=== PATIENT | female | born 1960 | race African-American/Black ===

== ENCOUNTER 2017-03-20 15:44 | Inpatient (IN) | payer MEDICAID ==
[~2017-03-20] VITALS: Ht 175.3 cm; Wt 109.3 kg
[2017-03-20 16:32] LABS: BASOPHILS % (AUTO) 0.4 % (0.0-2.0); EOSINOPHILS % (AUTO) 0.8 % (0.0-3.0); LYMPHOCYTES % (AUTO) 16.6 % (20.0-45.0); MEAN CORPUSCULAR HEMOGLOBIN 30.7 PG (27.0-31.0); MEAN CORPUSCULAR HGB CONC 33.4 G/DL (32.0-36.0); MEAN CORPUSCULAR VOLUME 92 FL (80-99); MEAN PLATELET VOLUME 7.9 FL (6.5-10.1); NEUTROPHILS % (AUTO) 77.2 % (45.0-75.0); PLATELET COUNT 275 K/UL (150-450); RED BLOOD COUNT 4.65 M/UL (4.20-5.40); RED CELL DISTRIBUTION WIDTH 10.6 % (11.6-14.8); WHITE BLOOD COUNT 8.6 K/UL (4.8-10.8)
--- NOTE | 2017-03-20 16:47 | Diagnostic Imaging Report ---
Indications: Head trauma, status post fall Technique: Spiral acquisitions obtained through the brain. Angled axial and coronal 5 x 5 mm slices were reconstructed. Total dose length product 1512 mGycm. CTDI vol(s) 70 mGy. 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 There is bilateral lateral ventricular as well as third ventricular hydrocephalus. Normal sized fourth ventricle Normal size extra-axial CSF spaces. No acute intracranial hemorrhage. No mass effect or midline shift. Normal stoner-white differentiation. Impression: No acute intracranial bleed or mass effect Bilateral hydrocephalus. 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 Correlate with clinical history The CT scanner at [facility] is accredited by the [employer] and the scans are performed using protocols designed to limit radiation exposure to as low as reasonably achievable to attain images of sufficient resolution adequate for diagnostic evaluation.
[2017-03-20 16:55] LABS: ANION GAP 7 mmol/L (5-15); CALCIUM 9.7 MG/DL (8.5-10.1); CARBON DIOXIDE 31 MMOL/L (21-32); CHLORIDE 101 MMOL/L (98-107); CREATININE 1.1 MG/DL (0.55-1.30); GLOMERULAR FILTRATION RATE > 60 mL/min (>60); POTASSIUM 5.3 MMOL/L (3.5-5.1); SODIUM 138 MMOL/L (136-145)
[2017-03-20 17:00] LABS: ALANINE AMINOTRANSFERASE 23 U/L (12-78); ALBUMIN/GLOBULIN RATIO 0.8 (1.0-2.7); ASPARTATE AMINO TRANSFERASE 12 U/L (15-37); LIPASE 224 U/L (73-393)
[2017-03-20 17:05] LABS: INR 0.9 (0.9-1.1); PROTHROMBIN TIME 9.2 SEC (9.30-11.50)
[2017-03-20] MEDS ORDERED: metFORMIN 500mg tab ORAL ONE (18:15)
[2017-03-20 18:21] VITALS: BP 137/81
[2017-03-20 19:24] LABS: APPEARANCE,URINE CLEAR; KETONES,URINE NEGATIVE (NEGATIVE); LEUKOCYTE ESTERASE ,URINE 1+ (NEGATIVE); NITRITE,URINE POSITIVE (NEGATIVE); PH,URINE 6 (4.5-8.0); PROTEIN,URINE NEGATIVE (NEGATIVE); UROBILINOGEN,URINE NORMAL MG/DL (0.0-1.0)
[2017-03-20 19:29] VITALS: BP 149/93
[2017-03-20 19:41] LABS: ANION GAP 9 mmol/L (5-15); CALCIUM 9.4 MG/DL (8.5-10.1); CARBON DIOXIDE 24 MMOL/L (21-32); CHLORIDE 104 MMOL/L (98-107); CREATININE 0.8 MG/DL (0.55-1.30); GLOMERULAR FILTRATION RATE > 60 mL/min (>60); POTASSIUM 5.3 MMOL/L (3.5-5.1); SODIUM 137 MMOL/L (136-145)
[2017-03-20 19:51] LABS: BACTERIA,URINE MODERATE /HPF; SQUAMOUS EPITHELIAL CELL,UR FEW /LPF (NONE/OCC)
[2017-03-20 19:52] LABS: AMORPHOUS SEDIMENT,UR FEW /LPF
[2017-03-20] MEDS ORDERED: Sodium Polystyrene Sulfonate 15gm Powder ORAL ONE (20:00)
--- NOTE | 2017-03-20 20:39 | Emergency Room Report ---
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 She states that she often falls to to the weakness. She uses a walker to get around her independent living facility. She states that she was in the top, slipped, and fell. She states that she hit the back of her head. She denies loss of consciousness at that time. Pain is an 8/10 dull ache and does not radiate. Worse with touch. She denies other symptoms including nausea, vomiting, dizziness, blurred vision , neck pain, chest pain, shortness of breath Allergies: Coded Allergies: No Known Allergies (Unverified , 03/20/17) Patient History Past Medical History: see triage record Pertinent Family History: none Reviewed Nursing Documentation: PMH: Agreed, PSxH: Agreed Nursing Documentation-PMH Past Medical History: No History, Except For Hx Hypertension: Yes Hx Diabetes: Yes Hx Cerebrovascular Accident: Yes Review of Systems All Other Systems: negative except mentioned in HPI Physical Exam Vital Signs Date Time Temp Pulse Resp B/P (MAP) Pulse Ox O2 Delivery O2 Flow Rate FiO2 03/20/17 15:39 97.5 112 20 122/72 96 Room Air Sp02 EP Interpretation: reviewed, normal General Appearance: no apparent distress, alert, GCS 15, non-toxic Head: normocephalic, atraumatic Eyes: bilateral eye PERRL, bilateral eye EOMI ENT: hearing grossly normal, normal pharynx, no angioedema, normal voice Neck: full range of motion, supple/symm/no masses Respiratory: chest non-tender, lungs clear, normal breath sounds, speaking full sentences Cardiovascular #1: regular rate, rhythm, no edema Genitourinary: normal inspection, no CVA tenderness Musculoskeletal: back normal, gait/station normal, normal range of motion, non- tender Neurologic: alert, oriented x3, responsive, sensory intact, speech normal, other - mild R sided extremity weakness Psychiatric: judgement/insight normal, memory normal, mood/affect normal, no suicidal/homicidal ideation Skin: normal color, no rash, warm/dry, well hydrated Lymphatic: no adenopathy Medical Decision Making PA Attestation Dr. Markham is my supervising physician. Patient management was discussed with my supervising physician Diagnostic Impression: Primary Impression: Fall Qualified Codes: W19.XXXA - Unspecified fall, initial encounter Additional Impressions: Hyperkalemia Generalized weakness Urinary tract infection Qualified Codes: N30.00 - Acute cystitis without hematuria ER Course The patient is a 56 old female presenting for fall Differential diagnoses considered but not limited to: Contusion, concussion, fracture, intracranial hemorrhage, dehydration, electrolyte imbalance, among others PE: No apparent distress. Head is normocephalic PERRL. EOMI. CN II-XII intact RRR Lungs CTA bilat There is mild right extremity weakness. Sensation is intact. Labs: Significant for hyperkalemia, hyperglycemia, and urinary tract infection CT head: no acute findings EKG: No acute findings. The patient is given IV fluids, Rocephin, and Kayexalate and will be admitted in serious but stable condition. Dr. Markham has spoken with the admitting physician. Laboratory Tests Test 03/20/17 16:19 03/20/17 18:34 03/20/17 19:09 White Blood Count 8.6 K/UL (4.8-10.8) Red Blood Count 4.65 M/UL (4.20-5.40) Hemoglobin 14.2 G/DL (12.0-16.0) Hematocrit 42.6 % (37.0-47.0) Mean Corpuscular Volume 92 FL (80-99) Mean Corpuscular Hemoglobin 30.7 PG (27.0-31.0) Mean Corpuscular Hemoglobin Concent 33.4 G/DL (32.0-36.0) Red Cell Distribution Width 10.6 % (11.6-14.8) L Platelet Count 275 K/UL (150-450) Mean Platelet Volume 7.9 FL (6.5-10.1) Neutrophils (%) (Auto) 77.2 % (45.0-75.0) H Lymphocytes (%) (Auto) 16.6 % (20.0-45.0) L Monocytes (%) (Auto) 5.0 % (1.0-10.0) Eosinophils (%) (Auto) 0.8 % (0.0-3.0) Basophils (%) (Auto) 0.4 % (0.0-2.0) Prothrombin Time 9.2 SEC (9.30-11.50) L Prothrombin Time INR 0.9 (0.9-1.1) PTT 26 SEC (23-33) Sodium Level 138 MMOL/L (136-145) 137 MMOL/L (136-145) Potassium Level 5.3 MMOL/L (3.5-5.1) H 5.3 MMOL/L (3.5-5.1) H Chloride Level 101 MMOL/L (98-107) 104 MMOL/L (98-107) Carbon Dioxide Level 31 MMOL/L (21-32) 24 MMOL/L (21-32) Anion Gap 7 mmol/L (5-15) 9 mmol/L (5-15) Blood Urea Nitrogen 26 mg/dL (7-18) H 23 mg/dL (7-18) H Creatinine 1.1 MG/DL (0.55-1.30) 0.8 MG/DL (0.55-1.30) Estimate Glomerular Filtration Rate > 60 mL/min (>60) > 60 mL/min (>60) Glucose Level 387 MG/DL (74-106) H 303 MG/DL (74-106) H Calcium Level 9.7 MG/DL (8.5-10.1) 9.4 MG/DL (8.5-10.1) Total Bilirubin 0.2 MG/DL (0.2-1.0) Aspartate Amino Transferase (AST) 12 U/L (15-37) L Alanine Aminotransferase (ALT) 23 U/L (12-78) Alkaline Phosphatase 80 U/L (46-116) Total Protein 8.0 G/DL (6.4-8.2) Albumin 3.5 G/DL (3.4-5.0) Globulin 4.5 g/dL Albumin/Globulin Ratio 0.8 (1.0-2.7) L Lipase 224 U/L (73-393) Urine Color Pale yellow Urine Appearance Clear Urine pH 6 (4.5-8.0) Urine Specific [place] 1.005 (1.005-1.035) Urine Protein Negative (NEGATIVE) Urine Glucose (UA) 4+ (NEGATIVE) H Urine Ketones Negative (NEGATIVE) Urine Occult Blood Negative (NEGATIVE) Urine Nitrite Positive (NEGATIVE) H Urine Bilirubin Negative (NEGATIVE) Urine Urobilinogen Normal MG/DL (0.0-1.0) Urine Leukocyte Esterase 1+ (NEGATIVE) H Urine RBC 2-4 /HPF (0 - 2) H Urine WBC 5-10 /HPF (0 - 2) H Urine Squamous Epithelial Cells Few /LPF (NONE/OCC) Urine Amorphous Sediment Few /LPF (NONE) H Urine Bacteria Moderate /HPF (NONE) H Lab Results Impression Significant for hyperkalemia, hyperglycemia, and urinary tract infection EKG Diagnostic Results EP Interpretation: NSR, No acute changes Rate: normal - 86 Rhythm: NSR ASA given to the pt in ED: No PA Scribe Text EKG was reviewed and read with my supervising physician. No acute ST segment changes are seen. Normal rate and rhythm. No acute changes. CT/MRI/US Diagnostic Results CT/MRI/US Diagnostic Results : Imaging Test Ordered: CT head Impression No acute findings. Last Vital Signs Date Time Temp Pulse Resp B/P (MAP) Pulse Ox O2 Delivery O2 Flow Rate FiO2 03/20/17 19:29 98.1 91 13 149/93 98 Room Air Status: improved Disposition: ADMITTED INPATIENT Condition: Serious Referrals: [facility],REFERRING (PCP) LEYDI SNYDER Mar 20, 2017 20:39
[2017-03-20] MEDS ORDERED: cefTRIAXone 1 GM in NS 55 ML IVPB ONE (20:45)
[2017-03-20] MEDS ORDERED: CILOSTAZOL100 MG PO (20:55)
[2017-03-20] MEDS ORDERED: ACTOS15 MG ORAL (20:55)
[2017-03-20] MEDS ORDERED: GABAPENTIN300 MG ORAL (20:55)
[2017-03-20] MEDS ORDERED: METFORMIN HCL500 M1 ORAL (20:55)
[2017-03-20] MEDS ORDERED: RISPERDAL3 MG PO (20:59)
[2017-03-20] MEDS ORDERED: DEPAKOTE ER500 MG ORAL (20:59)
[2017-03-20] MEDS ORDERED: ABILIFY15 MG ORAL (20:59)
[2017-03-20] MEDS ORDERED: SERTRALINE HCL100 MG PO (20:59)
[2017-03-20] MEDS ORDERED: HYDROCHLOROTH12.5 MG ORAL (21:01)
[2017-03-20] MEDS ORDERED: BENAZEPRIL HCL10 MG ORAL (21:01)
[2017-03-20] MEDS ORDERED: AMLODIPINE-BEN1 EACH ORAL (21:07)
[2017-03-20 22:17] VITALS: BP 128/98
[2017-03-20] MEDS ORDERED: Miralax 17gm pkt ORAL PRN (22:30)
[2017-03-20] MEDS ORDERED: Albuterol/Ipratropium 3ml neb HHN PRN (22:30)
[2017-03-20 23:30] VITALS: BP 134/73
[2017-03-21] VITALS: BP 135/73
[2017-03-21] MEDS ORDERED: Vancomycin 1 GM in D5W 275 ML IVPB SCH (01:00)
[2017-03-21] MEDS ORDERED: Vancomycin 1gm inj IVPB ONE (01:12)
[2017-03-21 04:00] VITALS: BP 140/83
[2017-03-21] MEDS: Morphine Sulfate 2mg/ml Inj IVP PRN ×3 (04:31→22:43)
[2017-03-21] MEDS ORDERED: Insulin NPH SUBQ SCH (06:30)
[2017-03-21] MEDS: NovoLOG Insulin Flexpen SUBQ SCH ×4 (06:30→22:12)
[2017-03-21 08:00] VITALS: BP 136/72
[2017-03-21] MEDS ORDERED: Flu Vaccine Quadrivalent 0.5ml IM ONE (09:00)
[2017-03-21] MEDS: Heparin 5000 units/ml inj SUBQ SCH ×2 (09:00→21:47)
[2017-03-21] MEDS ORDERED: Pneumococcal Vaccine 25mcg/0.5ml IM ONE (09:00)
[2017-03-21 09:02] LABS: BASOPHILS % (AUTO) 0.6 % (0.0-2.0); EOSINOPHILS % (AUTO) 1.1 % (0.0-3.0); LYMPHOCYTES % (AUTO) 24.2 % (20.0-45.0); MEAN CORPUSCULAR HEMOGLOBIN 29.6 PG (27.0-31.0); MEAN CORPUSCULAR HGB CONC 32.5 G/DL (32.0-36.0); MEAN CORPUSCULAR VOLUME 91 FL (80-99); MEAN PLATELET VOLUME 7.5 FL (6.5-10.1); MONOCYTES % (AUTO) 5.8 % (1.0-10.0); NEUTROPHILS % (AUTO) 68.3 % (45.0-75.0); PLATELET COUNT 285 K/UL (150-450); RED CELL DISTRIBUTION WIDTH 10.7 % (11.6-14.8); WHITE BLOOD COUNT 7.8 K/UL (4.8-10.8)
[2017-03-21 09:17] LABS: ALANINE AMINOTRANSFERASE 21 U/L (12-78); ALBUMIN/GLOBULIN RATIO 0.7 (1.0-2.7); ANION GAP 5 mmol/L (5-15); ASPARTATE AMINO TRANSFERASE 13 U/L (15-37); CALCIUM 9.2 MG/DL (8.5-10.1); CARBON DIOXIDE 33 MMOL/L (21-32); CHLORIDE 106 MMOL/L (98-107); CREATININE 0.9 MG/DL (0.55-1.30); GLOMERULAR FILTRATION RATE > 60 mL/min (>60); POTASSIUM 4.4 MMOL/L (3.5-5.1); SODIUM 144 MMOL/L (136-145); TOTAL PROTEIN 7.3 G/DL (6.4-8.2)
[2017-03-21] MEDS: Cefepime HCl 2 GM in D5W 55 ML IV SCH ×2 (09:48→21:36)
[2017-03-21] MEDS: Cilostazol 100mg tab ORAL SCH ×2 (09:49→17:12)
[2017-03-21] MEDS: Sertraline 100mg tab ORAL SCH ×2 (09:49→17:35)
--- NOTE | 2017-03-21 11:33 | History and Physical ---
History of Present Illness General Date patient seen: Mar 20, 2017 Reason for Hospitalization: Multiple Trauma/Fall Present Illness HPI 56 old female with a history of congenital brain malformation and right-sided weakness status post CVA, diabetes, and hypertension presenting for pain after a fall today. She states that she often falls to to the weakness. She was in the top, slipped, and fell. She states that she hit the back of her head. She denies loss of consciousness at that time. Pain is an 8/10 dull ache and does not radiate. She was noticed to have UTI and Hyperkalemia and admitted to telemetry for further w/u. Allergies: Coded Allergies: No Known Allergies (Unverified , 03/20/17) Medication History Scheduled Amlodipine Besylate/Benazepril* (Amlodipine-Benazepril 10-20 Mg*), 1 CAP ORAL DAILY, (Reported) Aripiprazole* (Abilify*), 30 MG ORAL DAILY, (Reported) Cilostazol* (Cilostazol*), 100 MG PO TWICE A DAY, (Reported) Divalproex Sodium* (Depakote Er*), 500 MG ORAL QHS, (Reported) Gabapentin* (Gabapentin*), 300 MG ORAL BID, (Reported) Hydrochlorothiazide* (Hydrochlorothiazide*), Unknown Dose ORAL DAILY, (Reported) Metformin Hcl* (Metformin Hcl*), 500 MG ORAL TWICE A DAY, (Reported) Pioglitazone Hcl* (Actos*), 15 MG ORAL DAILY, (Reported) Risperidone (Risperdal), 3 MG PO QHS, (Reported) Sertraline Hcl* (Zoloft*), 100 MG PO BID, (Reported) Patient History Healthcare decision maker Resuscitation status Full Code Advanced Directive on File Past Medical/Surgical History Past Medical/Surgical History: (1) Cerebrovascular accident (CVA) (2) Congenital brain damage Review of Systems All Other Systems: negative except mentioned in HPI Physical Exam General Appearance: WD/WN Lines, tubes and drains: peripheral, PICC HEENT: normocephalic, mucous membranes moist Neck: normal alignment, supple Respiratory/Chest: chest wall non-tender, normal breath sounds Breasts: no masses Cardiovascular/Chest: normal peripheral pulses, regular rhythm Abdomen: normal bowel sounds Genitourinary/Rectal: normal genital exam Last 24 Hour Vital Signs Date Time Temp Pulse Resp B/P (MAP) Pulse Ox O2 Delivery O2 Flow Rate FiO2 03/21/17 08:00 97.2 105 20 136/72 95 Room Air 03/21/17 06:45 77 18 Room Air 03/21/17 04:00 98.2 103 18 140/83 99 Room Air 03/21/17 04:00 94 03/21/17 00:00 97.4 97 18 135/73 98 Room Air 03/21/17 00:00 93 03/20/17 23:30 97.0 96 16 134/73 97 Room Air 03/20/17 23:10 98.1 91 12 128/98 98 Room Air 03/20/17 22:17 98.1 91 12 128/98 98 Room Air 03/20/17 19:29 98.1 91 13 149/93 98 Room Air 03/20/17 18:21 98.1 90 16 137/81 100 Room Air 03/20/17 15:39 97.5 112 20 122/72 96 Room Air Laboratory Tests Test 03/20/17 16:19 03/20/17 18:34 03/20/17 19:09 03/21/17 08:30 White Blood Count 8.6 K/UL (4.8-10.8) 7.8 K/UL (4.8-10.8) Red Blood Count 4.65 M/UL (4.20-5.40) 4.60 M/UL (4.20-5.40) Hemoglobin 14.2 G/DL (12.0-16.0) 13.6 G/DL (12.0-16.0) Hematocrit 42.6 % (37.0-47.0) 42.0 % (37.0-47.0) Mean Corpuscular Volume 92 FL (80-99) 91 FL (80-99) Mean Corpuscular Hemoglobin 30.7 PG (27.0-31.0) 29.6 PG (27.0-31.0) Mean Corpuscular Hemoglobin Concent 33.4 G/DL (32.0-36.0) 32.5 G/DL (32.0-36.0) Red Cell Distribution Width 10.6 % (11.6-14.8) L 10.7 % (11.6-14.8) L Platelet Count 275 K/UL (150-450) 285 K/UL (150-450) Mean Platelet Volume 7.9 FL (6.5-10.1) 7.5 FL (6.5-10.1) Neutrophils (%) (Auto) 77.2 % (45.0-75.0) H 68.3 % (45.0-75.0) Lymphocytes (%) (Auto) 16.6 % (20.0-45.0) L 24.2 % (20.0-45.0) Monocytes (%) (Auto) 5.0 % (1.0-10.0) 5.8 % (1.0-10.0) Eosinophils (%) (Auto) 0.8 % (0.0-3.0) 1.1 % (0.0-3.0) Basophils (%) (Auto) 0.4 % (0.0-2.0) 0.6 % (0.0-2.0) Prothrombin Time 9.2 SEC (9.30-11.50) L Prothromb Time International Ratio 0.9 (0.9-1.1) Activated Partial Thromboplast Time 26 SEC (23-33) Sodium Level 138 MMOL/L (136-145) 137 MMOL/L (136-145) 144 MMOL/L (136-145) Potassium Level 5.3 MMOL/L (3.5-5.1) H 5.3 MMOL/L (3.5-5.1) H 4.4 MMOL/L (3.5-5.1) Chloride Level 101 MMOL/L (98-107) 104 MMOL/L (98-107) 106 MMOL/L (98-107) Carbon Dioxide Level 31 MMOL/L (21-32) 24 MMOL/L (21-32) 33 MMOL/L (21-32) H Anion Gap 7 mmol/L (5-15) 9 mmol/L (5-15) 5 mmol/L (5-15) Blood Urea Nitrogen 26 mg/dL (7-18) H 23 mg/dL (7-18) H 17 mg/dL (7-18) Creatinine 1.1 MG/DL (0.55-1.30) 0.8 MG/DL (0.55-1.30) 0.9 MG/DL (0.55-1.30) Estimat Glomerular Filtration Rate > 60 mL/min (>60) > 60 mL/min (>60) > 60 mL/min (>60) Glucose Level 387 MG/DL (74-106) H 303 MG/DL (74-106) H 175 MG/DL (74-106) #H Calcium Level 9.7 MG/DL (8.5-10.1) 9.4 MG/DL (8.5-10.1) 9.2 MG/DL (8.5-10.1) Total Bilirubin 0.2 MG/DL (0.2-1.0) 0.3 MG/DL (0.2-1.0) Aspartate Amino Transf (AST/SGOT) 12 U/L (15-37) L 13 U/L (15-37) L Alanine Aminotransferase (ALT/SGPT) 23 U/L (12-78) 21 U/L (12-78) Alkaline Phosphatase 80 U/L (46-116) 69 U/L (46-116) Total Protein 8.0 G/DL (6.4-8.2) 7.3 G/DL (6.4-8.2) Albumin 3.5 G/DL (3.4-5.0) 3.1 G/DL (3.4-5.0) L Globulin 4.5 g/dL 4.2 g/dL Albumin/Globulin Ratio 0.8 (1.0-2.7) L 0.7 (1.0-2.7) L Lipase 224 U/L (73-393) Urine Color Pale yellow Urine Appearance Clear Urine pH 6 (4.5-8.0) Urine Specific [place] 1.005 (1.005-1.035) Urine Protein Negative (NEGATIVE) Urine Glucose (UA) 4+ (NEGATIVE) H Urine Ketones Negative (NEGATIVE) Urine Occult Blood Negative (NEGATIVE) Urine Nitrite Positive (NEGATIVE) H Urine Bilirubin Negative (NEGATIVE) Urine Urobilinogen Normal MG/DL (0.0-1.0) Urine Leukocyte Esterase 1+ (NEGATIVE) H Urine RBC 2-4 /HPF (0 - 2) H Urine WBC 5-10 /HPF (0 - 2) H Urine Squamous Epithelial Cells Few /LPF (NONE/OCC) Urine Amorphous Sediment Few /LPF (NONE) H Urine Bacteria Moderate /HPF (NONE) H Microbiology Date/Time Source Procedure Growth Status 03/20/17 18:34 Urine,Clean Catch Urine Culture - Preliminary Gram Negative Bacillus 1 Resulted Height (Feet): 5 Height (Inches): 9.00 Weight (Pounds): 241 Medications Current Medications Medications (Trade) Dose Ordered Sig/Uyen Route PRN Reason Start Time Stop Time Status Last Admin Dose Admin Acetaminophen (Tylenol) 650 mg Q4H PRN ORAL fever 03/20/17 22:30 04/19/17 22:29 Albuterol/ Ipratropium (Albuterol/ Ipratropium) 3 ml Q4H PRN HHN Shortness of Breath 03/20/17 22:30 03/25/17 22:29 Aripiprazole (Abilify) 30 mg DAILY ORAL 03/21/17 09:00 04/20/17 08:59 03/21/17 09:48 Cefepime HCl 2 gm/ Dextrose 55 ml @ 110 mls/hr EVERY 12 HOURS IV 03/21/17 09:00 03/28/17 08:59 03/21/17 09:48 Cilostazol (Pletal) 100 mg TWICE A DAY ORAL 03/21/17 09:00 04/20/17 08:59 03/21/17 09:49 Dextrose (Dextrose 50%) STAT PRN IV Hypoglycemia 03/20/17 22:30 04/19/17 22:29 Divalproex Sodium (Depakote ER) 500 mg QHS ORAL 03/21/17 21:00 04/20/17 20:59 Gabapentin (Neurontin) 300 mg BID ORAL 03/21/17 09:00 04/20/17 08:59 03/21/17 09:49 Heparin Sodium (Porcine) (Heparin 5000 units/ml) 5,000 units EVERY 12 HOURS SUBQ 03/21/17 09:00 04/20/17 08:59 Insulin Aspart (NovoLOG) BEFORE MEALS AND HS SUBQ 03/21/17 06:30 04/20/17 06:29 03/21/17 06:30 Morphine Sulfate (Morphine Sulfate) 2 mg Q4H PRN IVP Moderate Pain (Pain Scale 4-6) 03/20/17 22:30 03/27/17 22:29 03/21/17 04:31 Ondansetron HCl (Zofran) 4 mg Q6H PRN IVP Nausea & Vomiting 03/20/17 22:30 04/19/17 22:29 Phenazopyridine HCl (Pyridium) 100 mg DAILY PRN ORAL dysuria 03/20/17 22:30 04/19/17 22:29 Polyethylene Glycol (Miralax) 17 gm DAILYPRN PRN ORAL Constipation 03/20/17 22:30 04/19/17 22:29 Sertraline HCl (Zoloft) 100 mg BID ORAL 03/21/17 09:00 04/20/17 08:59 03/21/17 09:49 Temazepam (Restoril) 15 mg HSPRN PRN ORAL Insomnia 03/20/17 22:30 03/27/17 22:29 Vancomycin HCl (Vanco rx to dose) 1 ea DAILY PRN MISC per protocol 03/20/17 23:30 04/19/17 23:29 Vancomycin HCl 1 gm/Dextrose 275 ml @ 183.3 mls/ hr Q12H IVPB 03/21/17 01:00 03/26/17 00:59 03/21/17 01:25 Assessment/Plan Problem List: (1) Urinary tract infection ICD Codes: N39.0 - Urinary tract infection, site not specified SNOMED: 13424838 Qualifiers: Qualified Codes: N30.00 - Acute cystitis without hematuria (2) Hyperkalemia ICD Codes: E87.5 - Hyperkalemia SNOMED: 91238620, 295041565 (3) Generalized weakness ICD Codes: R53.1 - Weakness SNOMED: 06997034 (4) Congenital brain damage ICD Codes: Q04.8 - Other specified congenital malformations of brain SNOMED: 24791612 (5) Cerebrovascular accident (CVA) ICD Codes: I63.9 - Cerebral infarction, unspecified SNOMED: 122900095 Assessment/Plan IV fluids, IV abx check cultures Neuro evaluation renal f/u ARIN CLEANING Mar 21, 2017 11:33
--- NOTE | 2017-03-21 11:37 | Pulmonology Progress Note ---
Assessment/Plan Problems: (1) Urinary tract infection (2) Hyperkalemia (3) Generalized weakness (4) Congenital brain damage (5) Cerebrovascular accident (CVA) Assessment/Plan improving K better continue IV fluids check electroltyes neuro evaluation pending Subjective ROS Limited/Unobtainable: No Constitutional: Reports: no symptoms HEENT: Repors: no symptoms Respiratory: Reports: no symptoms Cardiovascular: Reports: no symptoms Allergies: Coded Allergies: No Known Allergies (Unverified , 03/20/17) Objective Last 24 Hour Vital Signs Date Time Temp Pulse Resp B/P (MAP) Pulse Ox O2 Delivery O2 Flow Rate FiO2 03/21/17 08:00 97.2 105 20 136/72 95 Room Air 03/21/17 06:45 77 18 Room Air 03/21/17 04:00 98.2 103 18 140/83 99 Room Air 03/21/17 04:00 94 03/21/17 00:00 97.4 97 18 135/73 98 Room Air 03/21/17 00:00 93 03/20/17 23:30 97.0 96 16 134/73 97 Room Air 03/20/17 23:10 98.1 91 12 128/98 98 Room Air 03/20/17 22:17 98.1 91 12 128/98 98 Room Air 03/20/17 19:29 98.1 91 13 149/93 98 Room Air 03/20/17 18:21 98.1 90 16 137/81 100 Room Air 03/20/17 15:39 97.5 112 20 122/72 96 Room Air General Appearance: WD/WN HEENT: normocephalic, atraumatic, anicteric Respiratory/Chest: lungs clear Breasts: no masses Cardiovascular: normal peripheral pulses Abdomen: normal bowel sounds, soft, non tender Genitourinary: normal external genitalia Extremities: no clubbing 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, abnormal gait Lymphatic: no neck adenopathy Microbiology Date/Time Source Procedure Growth Status 03/20/17 18:34 Urine,Clean Catch Urine Culture - Preliminary Gram Negative Bacillus 1 Resulted Laboratory Tests 03/20/17 16:19: White Blood Count 8.6, Red Blood Count 4.65, Hemoglobin 14.2, Hematocrit 42.6, Mean Corpuscular Volume 92, Mean Corpuscular Hemoglobin 30.7, Mean Corpuscular Hemoglobin Concent 33.4, Red Cell Distribution Width 10.6L, Platelet Count 275, Mean Platelet Volume 7.9, Neutrophils (%) (Auto) 77.2H, Lymphocytes (%) (Auto) 16.6L, Monocytes (%) (Auto) 5.0, Eosinophils (%) (Auto) 0.8, Basophils (%) (Auto ) 0.4, Prothrombin Time 9.2L, Prothromb Time International Ratio 0.9, Activated Partial Thromboplast Time 26, Sodium Level 138, Potassium Level 5.3H, Chloride Level 101, Carbon Dioxide Level 31, Anion Gap 7, Blood Urea Nitrogen 26H, Creatinine 1.1, Estimat Glomerular Filtration Rate > 60, Glucose Level 387H, Calcium Level 9.7, Total Bilirubin 0.2, Aspartate Amino Transf (AST/SGOT) 12L, Alanine Aminotransferase (ALT/SGPT) 23, Alkaline Phosphatase 80, Total Protein 8.0, Albumin 3.5, Globulin 4.5, Albumin/Globulin Ratio 0.8L, Lipase 224 03/20/17 18:34: Urine Color Pale yellow, Urine Appearance Clear, Urine pH 6, Urine Specific [place] 1.005, Urine Protein Negative, Urine Glucose (UA) 4+H, Urine Ketones Negative, Urine Occult Blood Negative, Urine Nitrite PositiveH, Urine Bilirubin Negative, Urine Urobilinogen Normal, Urine Leukocyte Esterase 1+H, Urine RBC 2- 4H, Urine WBC 5-10H, Urine Squamous Epithelial Cells Few, Urine Amorphous Sediment FewH, Urine Bacteria ModerateH 03/20/17 19:09: Sodium Level 137, Potassium Level 5.3H, Chloride Level 104, Carbon Dioxide Level 24, Anion Gap 9, Blood Urea Nitrogen 23H, Creatinine 0.8, Estimat Glomerular Filtration Rate > 60, Glucose Level 303H, Calcium Level 9.4 03/21/17 08:30: White Blood Count 7.8, Red Blood Count 4.60, Hemoglobin 13.6, Hematocrit 42.0, Mean Corpuscular Volume 91, Mean Corpuscular Hemoglobin 29.6, Mean Corpuscular Hemoglobin Concent 32.5, Red Cell Distribution Width 10.7L, Platelet Count 285, Mean Platelet Volume 7.5, Neutrophils (%) (Auto) 68.3, Lymphocytes (%) (Auto) 24.2, Monocytes (%) (Auto) 5.8, Eosinophils (%) (Auto) 1.1, Basophils (%) (Auto ) 0.6, Sodium Level 144, Potassium Level 4.4, Chloride Level 106, Carbon Dioxide Level 33H, Anion Gap 5, Blood Urea Nitrogen 17, Creatinine 0.9, Estimat Glomerular Filtration Rate > 60, Glucose Level 175#H, Calcium Level 9.2, Total Bilirubin 0.3, Aspartate Amino Transf (AST/SGOT) 13L, Alanine Aminotransferase ( ALT/SGPT) 21, Alkaline Phosphatase 69, Total Protein 7.3, Albumin 3.1L, Globulin 4.2, Albumin/Globulin Ratio 0.7L Current Medications Medications (Trade) Dose Ordered Sig/Uyen Route PRN Reason Start Time Stop Time Status Last Admin Dose Admin Acetaminophen (Tylenol) 650 mg Q4H PRN ORAL fever 03/20/17 22:30 04/19/17 22:29 Albuterol/ Ipratropium (Albuterol/ Ipratropium) 3 ml Q4H PRN HHN Shortness of Breath 03/20/17 22:30 03/25/17 22:29 Aripiprazole (Abilify) 30 mg DAILY ORAL 03/21/17 09:00 04/20/17 08:59 03/21/17 09:48 Cefepime HCl 2 gm/ Dextrose 55 ml @ 110 mls/hr EVERY 12 HOURS IV 03/21/17 09:00 03/28/17 08:59 03/21/17 09:48 Cilostazol (Pletal) 100 mg TWICE A DAY ORAL 03/21/17 09:00 04/20/17 08:59 03/21/17 09:49 Dextrose (Dextrose 50%) STAT PRN IV Hypoglycemia 03/20/17 22:30 04/19/17 22:29 Divalproex Sodium (Depakote ER) 500 mg QHS ORAL 03/21/17 21:00 04/20/17 20:59 Gabapentin (Neurontin) 300 mg BID ORAL 03/21/17 09:00 04/20/17 08:59 03/21/17 09:49 Heparin Sodium (Porcine) (Heparin 5000 units/ml) 5,000 units EVERY 12 HOURS SUBQ 03/21/17 09:00 04/20/17 08:59 Insulin Aspart (NovoLOG) BEFORE MEALS AND HS SUBQ 03/21/17 06:30 12/17/17 06:29 03/21/17 06:30 Morphine Sulfate (Morphine Sulfate) 2 mg Q4H PRN IVP Moderate Pain (Pain Scale 4-6) 03/20/17 22:30 03/27/17 22:29 03/21/17 04:31 Ondansetron HCl (Zofran) 4 mg Q6H PRN IVP Nausea & Vomiting 03/20/17 22:30 04/19/17 22:29 Phenazopyridine HCl (Pyridium) 100 mg DAILY PRN ORAL dysuria 03/20/17 22:30 04/19/17 22:29 Polyethylene Glycol (Miralax) 17 gm DAILYPRN PRN ORAL Constipation 03/20/17 22:30 04/19/17 22:29 Sertraline HCl (Zoloft) 100 mg BID ORAL 03/21/17 09:00 04/20/17 08:59 03/21/17 09:49 Temazepam (Restoril) 15 mg HSPRN PRN ORAL Insomnia 03/20/17 22:30 03/27/17 22:29 Vancomycin HCl (Vanco rx to dose) 1 ea DAILY PRN MISC per protocol 03/20/17 23:30 04/19/17 23:29 Vancomycin HCl 1 gm/Dextrose 275 ml @ 183.3 mls/ hr Q12H IVPB 03/21/17 01:00 03/26/17 00:59 03/21/17 01:25 ARIN CLEANING Mar 21, 2017 11:37
--- NOTE | 2017-03-21 11:39 | Neurology Progress Note ---
Interim History Interim History ROS Limited/Unobtainable: No Objective Physical Exam Last Vital Signs Date Time Temp Pulse Resp B/P (MAP) Pulse Ox O2 Delivery O2 Flow Rate FiO2 03/21/17 08:00 97.2 105 20 136/72 95 Room Air Laboratory Tests Test 03/20/17 16:19 03/20/17 18:34 03/20/17 19:09 03/21/17 08:30 White Blood Count 8.6 K/UL (4.8-10.8) 7.8 K/UL (4.8-10.8) Red Blood Count 4.65 M/UL (4.20-5.40) 4.60 M/UL (4.20-5.40) Hemoglobin 14.2 G/DL (12.0-16.0) 13.6 G/DL (12.0-16.0) Hematocrit 42.6 % (37.0-47.0) 42.0 % (37.0-47.0) Mean Corpuscular Volume 92 FL (80-99) 91 FL (80-99) Mean Corpuscular Hemoglobin 30.7 PG (27.0-31.0) 29.6 PG (27.0-31.0) Mean Corpuscular Hemoglobin Concent 33.4 G/DL (32.0-36.0) 32.5 G/DL (32.0-36.0) Red Cell Distribution Width 10.6 % (11.6-14.8) L 10.7 % (11.6-14.8) L Platelet Count 275 K/UL (150-450) 285 K/UL (150-450) Mean Platelet Volume 7.9 FL (6.5-10.1) 7.5 FL (6.5-10.1) Neutrophils (%) (Auto) 77.2 % (45.0-75.0) H 68.3 % (45.0-75.0) Lymphocytes (%) (Auto) 16.6 % (20.0-45.0) L 24.2 % (20.0-45.0) Monocytes (%) (Auto) 5.0 % (1.0-10.0) 5.8 % (1.0-10.0) Eosinophils (%) (Auto) 0.8 % (0.0-3.0) 1.1 % (0.0-3.0) Basophils (%) (Auto) 0.4 % (0.0-2.0) 0.6 % (0.0-2.0) Prothrombin Time 9.2 SEC (9.30-11.50) L Prothromb Time International Ratio 0.9 (0.9-1.1) Activated Partial Thromboplast Time 26 SEC (23-33) Sodium Level 138 MMOL/L (136-145) 137 MMOL/L (136-145) 144 MMOL/L (136-145) Potassium Level 5.3 MMOL/L (3.5-5.1) H 5.3 MMOL/L (3.5-5.1) H 4.4 MMOL/L (3.5-5.1) Chloride Level 101 MMOL/L (98-107) 104 MMOL/L (98-107) 106 MMOL/L (98-107) Carbon Dioxide Level 31 MMOL/L (21-32) 24 MMOL/L (21-32) 33 MMOL/L (21-32) H Anion Gap 7 mmol/L (5-15) 9 mmol/L (5-15) 5 mmol/L (5-15) Blood Urea Nitrogen 26 mg/dL (7-18) H 23 mg/dL (7-18) H 17 mg/dL (7-18) Creatinine 1.1 MG/DL (0.55-1.30) 0.8 MG/DL (0.55-1.30) 0.9 MG/DL (0.55-1.30) Estimat Glomerular Filtration Rate > 60 mL/min (>60) > 60 mL/min (>60) > 60 mL/min (>60) Glucose Level 387 MG/DL (74-106) H 303 MG/DL (74-106) H 175 MG/DL (74-106) #H Calcium Level 9.7 MG/DL (8.5-10.1) 9.4 MG/DL (8.5-10.1) 9.2 MG/DL (8.5-10.1) Total Bilirubin 0.2 MG/DL (0.2-1.0) 0.3 MG/DL (0.2-1.0) Aspartate Amino Transf (AST/SGOT) 12 U/L (15-37) L 13 U/L (15-37) L Alanine Aminotransferase (ALT/SGPT) 23 U/L (12-78) 21 U/L (12-78) Alkaline Phosphatase 80 U/L (46-116) 69 U/L (46-116) Total Protein 8.0 G/DL (6.4-8.2) 7.3 G/DL (6.4-8.2) Albumin 3.5 G/DL (3.4-5.0) 3.1 G/DL (3.4-5.0) L Globulin 4.5 g/dL 4.2 g/dL Albumin/Globulin Ratio 0.8 (1.0-2.7) L 0.7 (1.0-2.7) L Lipase 224 U/L (73-393) Urine Color Pale yellow Urine Appearance Clear Urine pH 6 (4.5-8.0) Urine Specific [place] 1.005 (1.005-1.035) Urine Protein Negative (NEGATIVE) Urine Glucose (UA) 4+ (NEGATIVE) H Urine Ketones Negative (NEGATIVE) Urine Occult Blood Negative (NEGATIVE) Urine Nitrite Positive (NEGATIVE) H Urine Bilirubin Negative (NEGATIVE) Urine Urobilinogen Normal MG/DL (0.0-1.0) Urine Leukocyte Esterase 1+ (NEGATIVE) H Urine RBC 2-4 /HPF (0 - 2) H Urine WBC 5-10 /HPF (0 - 2) H Urine Squamous Epithelial Cells Few /LPF (NONE/OCC) Urine Amorphous Sediment Few /LPF (NONE) H Urine Bacteria Moderate /HPF (NONE) H Impression/Recommendations Recommendations #[id number] MINDY SHEPPARD Mar 21, 2017 11:39
[2017-03-21 12:00] VITALS: BP_SYST 126; BP_SYST 137; BP_DIAS 69; BP_DIAS 72
--- NOTE | 2017-03-21 13:32 | Consultation ---
Consult Note Consult Note ID CONSULT: Dict# [id number] Assessment/Plan ASSESSMENT: 56 y/o female with: // GNR UTI - C&S pending // Afebrile without leukocytosis // Recurrent falls with head trauma - CT Head: No acute intracranial bleed or mass effect. Bilateral hydrocephalus. 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 // Congenital bilateral hydrocephalus // DM2 with hyperglycemia // h/o CVA // MDD // HTN // NKDA // Full Code PLAN: - continue empiric IV cefepime d# 1/ 5 pending C&S. DC IV vancomycin d# 1 - f/u cultures - monitor CBC, temperatures - monitor BMP - fall precautions / PT / OT Thanks! Will follow EVITA SIEGEL Mar 21, 2017 13:32
[2017-03-21 16:00] VITALS: BP 135/75
[2017-03-21 20:22] VITALS: BP 120/74
[2017-03-21] MEDS ORDERED: Depakote ER 500mg tab ORAL SCH (21:00)
--- NOTE | 2017-03-21 22:02 | Consultation ---
DATE OF CONSULTATION: 03/21/2017 NEUROLOGICAL CONSULTATION REQUESTING PHYSICIAN: Seema Lazaro M.D. HISTORY OF PRESENT ILLNESS: The patient is a 56-year-old female, seen in neurological consultation to evaluate abnormal gait resulting in a sleep and fall accident with head trauma. The patient informed me that she was at home walking when she slipped on a slippery surface and fell down falling backwards hitting her head. She had no loss of consciousness. Since trauma until present, there was no new symptomatology. She continued to have chronic pain in her low back region, and chronic headaches. She was brought to emergency room where vital signs were stable. She was afebrile. Her EKG with no acute findings. Her imaging studies included a stat CT of the brain, which was markedly abnormal with bilateral hydrocephalus, suspected to have congenital syndrome given presence of large retrocerebellar cyst. Laboratory work included normal CBC studies, normal coagulation panel, and urinalysis with 5-10 WBCs, 1+ leukocyte esterase, and 4+ glucose. Chemistry panel included blood sugar of 387, BUN of 26, and potassium 5.3. Since admission till present, there was no further paroxysmal event. The patient has been seen in this facility in 2010, which time she was treated with Abilify, Neurontin, insulin, Zoloft, metformin, Actos, Risperdal, and sertraline. PAST MEDICAL HISTORY: The patient has a history of cerebral malformation. She has a history of stroke in 1982 resulted in a right-sided weakness affecting her ambulation. She has a history of chronic psychiatric disorder, history of diabetes, as well as hypertension. She has a history of chronic headaches and chronic low back pain. MEDICATIONS: Her treatment prior to admission has previously included Pletal 100 mg twice a day, Abilify 20 mg, amlodipine, gabapentin 300 mg b.i.d., hydrochlorothiazide, metformin, Actos, Risperdal 3 mg at bedtime, and Zoloft 100 mg b.i.d. ALLERGIES: None reported. SOCIAL HISTORY: Lives in independent care facility where she has controlled medication, but otherwise normal health. She is taking care of her apartment. She does her own shopping, ambulating with use of walker. FAMILY HISTORY: Noncontributory. REVIEW OF SYSTEMS: Mild frontal headache, chronic, chronic low back pain more on the right side, weakness of right lower extremity. No chest pain. No palpitations. No respiratory problems. Denies abdominal pain or discomfort. No urine or bowel incontinence. PHYSICAL EXAMINATION: GENERAL: This is a well-developed, obese female, not in acute distress, lying comfortably in bed. VITAL SIGNS: Her vital signs now are stable, although heart rate was 105, temperature 97.2 degrees, blood pressure 136/72. HEENT: Normocephalic. There is no evidence of injury. Eyes, ears and throat are clear. NECK: Supple. No meningeal signs. MUSCULOSKELETAL: No deformities. Peripheral pulses 1+ symmetric. MENTAL STATUS: She is alert and oriented x3. Her speech is fluent with no evidence of aphasia. Poor historian, forgetful, but remained coherent, cooperative, and follow command. CRANIAL NERVE II: Pupils both responding to light and accommodation. Extraocular movement full range. CRANIAL NERVE V: Normal corneal responses. CRANIAL NERVE VII: Drooped right nasolabial fold. CRANIAL NERVE VIII: Slight decrease in hearing. CRANIAL NERVES IX THROUGH XII: Tongue is in midline. Symmetric palate elevation. MOTOR EXAMINATION: Normal muscle tone and strength in left extremity, normal muscle tone with reduced strength 5-/5 right upper extremity, 4/5 right lower extremity with partial right foot drop. Deep tendon reflexes 3+ on the left and 2+ on the right. Plantar response is mute bilaterally. SENSORY EXAM: Reduced response to pin stimulation on right side of the body. Gait not tested, but reported able to ambulate only with the use of walker. IMPRESSION: 1. Status post slip and fall accident with blunt head trauma. 2. Cephalgia, muscle contraction type, chronic. 3. Lumbar diskogenic disease with chronic low back pain. 4. Chronic congenital bilateral hydrocephalus with large retrocerebellar cyst. 5. 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 6. Hypertension. 7. Diabetes type 2. RECOMMENDATION: The patient has extensive intracerebral abnormality in form of very large cyst and bilateral hydrocephalus, which appears to be very chronic with no evidence of acute changes. No evidence of acute stroke. Head trauma, minor without loss of consciousness, and the patient claims no new symptomatology. The patient is not aware of underlying psychiatric issues, but obviously she was placed on antipsychotic treatment previously. We will maintain this. She is on Depakote, probably for behavioral abnormalities as denies having seizures. We will check Depakote level. Thank you for allowing me to see this interesting patient in neurological consultation. Brendan Cutler M.D. DR: KAUSHIK JOB#: [id number] CC:
[2017-03-22 00:38] VITALS: BP 151/84
[2017-03-22 04:54] VITALS: BP 143/80
[2017-03-22] MEDS: NovoLOG Insulin Flexpen SUBQ SCH ×4 (06:40→20:44)
[2017-03-22 07:37] LABS: EOSINOPHILS % (AUTO) 0.7 % (0.0-3.0); MEAN CORPUSCULAR HEMOGLOBIN 31.4 PG (27.0-31.0); MEAN CORPUSCULAR HGB CONC 34.3 G/DL (32.0-36.0); MEAN CORPUSCULAR VOLUME 91 FL (80-99); MEAN PLATELET VOLUME 7.3 FL (6.5-10.1); NEUTROPHILS % (AUTO) 73.4 % (45.0-75.0); PLATELET COUNT 251 K/UL (150-450); RED BLOOD COUNT 4.23 M/UL (4.20-5.40); RED CELL DISTRIBUTION WIDTH 10.7 % (11.6-14.8); WHITE BLOOD COUNT 7.9 K/UL (4.8-10.8)
[2017-03-22 08:15] LABS: HEMOGLOBIN A1C 8.7 % (4.3-6.0)
[2017-03-22 08:17] LABS: CHOLESTEROL 168 MG/DL (< 200); CHOLESTEROL/HDL RATIO 2.6 (3.3-4.4)
[2017-03-22 08:31] VITALS: BP 142/91
--- NOTE | 2017-03-22 08:31 | Infectious Diseases Prog Note ---
Assessment/Plan Assessment/Plan ASSESSMENT: 56 y/o female with: // UTI - Ecoli // Afebrile without leukocytosis // Recurrent falls with head trauma - CT Head: No acute intracranial bleed or mass effect. Bilateral hydrocephalus. 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 // Congenital bilateral hydrocephalus // DM2 with hyperglycemia // h/o CVA // MDD // HTN // NKDA // Full Code PLAN: - change IV cefepime to Ancef ( AB Rx d# 2 / ) , upon DC will change to Keflex to complete the course 03/21 SP IV vancomycin d# 1 - f/u cultures - monitor CBC, temperatures - monitor BMP - fall precautions / PT / OT Subjective Constitutional: Denies: no symptoms, fever, chills, fatigue, anorexia, drenching sweats, other Allergies: Coded Allergies: No Known Allergies (Unverified , 03/20/17) Objective Vital Signs Last 24 Hour Vital Signs Date Time Temp Pulse Resp B/P (MAP) Pulse Ox O2 Delivery O2 Flow Rate FiO2 03/22/17 04:54 98.1 105 22 143/80 94 Room Air 03/22/17 04:00 101 03/22/17 00:38 98.2 100 23 151/84 95 Room Air 03/22/17 00:00 112 03/21/17 20:22 98.0 101 22 120/74 95 Room Air 03/21/17 20:00 102 03/21/17 19:55 96 18 Room Air 03/21/17 16:00 101 03/21/17 16:00 97.6 104 20 135/75 95 Room Air 03/21/17 12:00 97.9 62 19 137/69 99 Room Air 03/21/17 12:00 97 03/21/17 12:00 97.8 66 21 126/72 94 Room Air Height (Feet): 5 Height (Inches): 9.00 Weight (Pounds): 241 HEENT: mucous membranes moist Respiratory/Chest: no accessory muscle use Cardiovascular: normal rate Abdomen: no organomegaly Microbiology Date/Time Source Procedure Growth Status 03/20/17 18:34 Urine,Clean Catch Urine Culture - Final Escherichia Coli Complete Laboratory Tests Test 03/22/17 06:25 White Blood Count 7.9 K/UL (4.8-10.8) Red Blood Count 4.23 M/UL (4.20-5.40) Hemoglobin 13.3 G/DL (12.0-16.0) Hematocrit 38.7 % (37.0-47.0) Mean Corpuscular Volume 91 FL (80-99) Mean Corpuscular Hemoglobin 31.4 PG (27.0-31.0) H Mean Corpuscular Hemoglobin Concent 34.3 G/DL (32.0-36.0) Red Cell Distribution Width 10.7 % (11.6-14.8) L Platelet Count 251 K/UL (150-450) Mean Platelet Volume 7.3 FL (6.5-10.1) Neutrophils (%) (Auto) 73.4 % (45.0-75.0) Lymphocytes (%) (Auto) 18.0 % (20.0-45.0) L Monocytes (%) (Auto) 7.0 % (1.0-10.0) Eosinophils (%) (Auto) 0.7 % (0.0-3.0) Basophils (%) (Auto) 1.0 % (0.0-2.0) Erythrocyte Sedimentation Rate Pending Sodium Level Pending Potassium Level Pending Chloride Level Pending Carbon Dioxide Level Pending Blood Urea Nitrogen Pending Creatinine Pending Estimat Glomerular Filtration Rate Pending Glucose Level Pending Hemoglobin A1c 8.7 % (4.3-6.0) H Calcium Level Pending Phosphorus Level Pending Magnesium Level Pending Total Bilirubin Pending Aspartate Amino Transf (AST/SGOT) Pending Alanine Aminotransferase (ALT/SGPT) Pending Alkaline Phosphatase Pending Total Protein Pending Albumin Pending Globulin Pending Triglycerides Level 58 MG/DL (0-200) Cholesterol Level 168 MG/DL (< 200) LDL Cholesterol 84 mg/dL (<100) HDL Cholesterol 64 MG/DL (40-60) H Cholesterol/HDL Ratio 2.6 (3.3-4.4) L Current Medications Medications (Trade) Dose Ordered Sig/Uyen Route PRN Reason Start Time Stop Time Status Last Admin Dose Admin Acetaminophen (Tylenol) 650 mg Q4H PRN ORAL fever 03/20/17 22:30 04/19/17 22:29 Albuterol/ Ipratropium (Albuterol/ Ipratropium) 3 ml Q4H PRN HHN Shortness of Breath 03/20/17 22:30 03/25/17 22:29 Aripiprazole (Abilify) 30 mg DAILY ORAL 03/21/17 09:00 04/20/17 08:59 03/21/17 09:48 Cefepime HCl 2 gm/ Dextrose 55 ml @ 110 mls/hr EVERY 12 HOURS IV 03/21/17 09:00 03/28/17 08:59 03/21/17 21:36 Cilostazol (Pletal) 100 mg TWICE A DAY ORAL 03/21/17 09:00 04/20/17 08:59 03/21/17 17:12 Dextrose (Dextrose 50%) STAT PRN IV Hypoglycemia 03/20/17 22:30 04/19/17 22:29 Divalproex Sodium (Depakote ER) 500 mg QHS ORAL 03/21/17 21:00 04/20/17 20:59 03/21/17 21:38 Gabapentin (Neurontin) 300 mg BID ORAL 03/21/17 09:00 04/20/17 08:59 03/21/17 17:14 Heparin Sodium (Porcine) (Heparin 5000 units/ml) 5,000 units EVERY 12 HOURS SUBQ 03/21/17 09:00 04/20/17 08:59 03/21/17 21:47 Insulin Aspart (NovoLOG) BEFORE MEALS AND HS SUBQ 03/21/17 06:30 04/20/17 06:29 03/22/17 06:40 Morphine Sulfate (Morphine Sulfate) 2 mg Q4H PRN IVP Moderate Pain (Pain Scale 4-6) 03/20/17 22:30 03/27/17 22:29 03/21/17 22:43 Ondansetron HCl (Zofran) 4 mg Q6H PRN IVP Nausea & Vomiting 03/20/17 22:30 04/19/17 22:29 Phenazopyridine HCl (Pyridium) 100 mg DAILY PRN ORAL dysuria 03/20/17 22:30 04/19/17 22:29 Polyethylene Glycol (Miralax) 17 gm DAILYPRN PRN ORAL Constipation 03/20/17 22:30 04/19/17 22:29 Sertraline HCl (Zoloft) 100 mg BID ORAL 03/21/17 09:00 04/20/17 08:59 03/21/17 17:35 Temazepam (Restoril) 15 mg HSPRN PRN ORAL Insomnia 03/20/17 22:30 03/27/17 22:29 JENNIFER LAMAR M.D. Mar 22, 2017 08:31
[2017-03-22 08:48] LABS: ALANINE AMINOTRANSFERASE 18 U/L (12-78); ALBUMIN/GLOBULIN RATIO 0.8 (1.0-2.7); ANION GAP 10 mmol/L (5-15); ASPARTATE AMINO TRANSFERASE 14 U/L (15-37); CALCIUM 9.1 MG/DL (8.5-10.1); CARBON DIOXIDE 27 MMOL/L (21-32); CHLORIDE 107 MMOL/L (98-107); GLOMERULAR FILTRATION RATE > 60 mL/min (>60); MAGNESIUM 1.4 MG/DL (1.8-2.4); PHOSPHORUS 4.1 MG/DL (2.5-4.9); POTASSIUM 3.9 MMOL/L (3.5-5.1); SODIUM 144 MMOL/L (136-145); TOTAL PROTEIN 7.1 G/DL (6.4-8.2)
[2017-03-22 09:08] LABS: ERYTHROCYTE SEDIMENTATION RATE 46 MM/HR (0-30)
[2017-03-22] MEDS: Cilostazol 100mg tab ORAL SCH ×2 (09:43→18:35)
[2017-03-22] MEDS: Cefepime HCl 2 GM in D5W 55 ML IV SCH (09:43)
[2017-03-22] MEDS: Sertraline 100mg tab ORAL SCH ×2 (09:44→18:04)
[2017-03-22] MEDS: Heparin 5000 units/ml inj SUBQ SCH ×2 (09:45→20:43)
[2017-03-22] MEDS ORDERED: D5W 275ml ONE (10:43)
[2017-03-22] MEDS ORDERED: NS 275ml ONE (10:43)
[2017-03-22] MEDS ORDERED: Tubing IV Secondary IV ONE (10:43)
[2017-03-22] MEDS: Morphine Sulfate 2mg/ml Inj IVP PRN (11:22)
[2017-03-22 11:46] VITALS: BP 127/85
--- NOTE | 2017-03-22 15:13 | Pulmonology Progress Note ---
Assessment/Plan Assessment/Plan ASSESSMENT s/p fall with hx of recurrent falls hyperkalemia -resolved s/p CVA with RSW bilateral hydrocephalus ( likely due to congenital syndrome) UTI / E coli DM HTN MDD PLAN OF CARE Tele transfer to [place] Abx urine cx + E coli , ID follows CT head + bilateral hydrocephalus likely 2 to congenital syndrome Fall precautions PT/OT neuro follows Lipid panel stable ASA, BS management with SS of insulin and NPH, check HgA1c BP stable, DVT prophylaxis bowel regimen a/depressant transfer to [place] floor dc plan case discussed and evaluated by supervising physician Subjective Allergies: Coded Allergies: No Known Allergies (Unverified , 03/20/17) Subjective afebrile, no leukocytosis denies chest pain, SOB on RA sat stable Objective Last 24 Hour Vital Signs Date Time Temp Pulse Resp B/P (MAP) Pulse Ox O2 Delivery O2 Flow Rate FiO2 03/22/17 12:00 96 03/22/17 11:52 97.9 03/22/17 11:46 97.9 102 18 127/85 97 Room Air 03/22/17 08:31 98.1 113 18 142/91 95 Room Air 03/22/17 08:00 107 03/22/17 07:32 104 18 Room Air 03/22/17 04:54 98.1 105 22 143/80 94 Room Air 03/22/17 04:00 101 03/22/17 00:38 98.2 100 23 151/84 95 Room Air 03/22/17 00:00 112 03/21/17 20:22 98.0 101 22 120/74 95 Room Air 03/21/17 20:00 102 03/21/17 19:55 96 18 Room Air 03/21/17 16:00 101 03/21/17 16:00 97.6 104 20 135/75 95 Room Air Intake and Output 03/22/17 03/23/17 19:00 07:00 Intake Total 240 ml Output Total 650 ml Balance -410 ml Intake Oral 240 ml Output Urine Total 650 ml General Appearance: no acute distress, other - awake, responsive HEENT: normocephalic, atraumatic, anicteric Respiratory/Chest: lungs clear, no respiratory distress Cardiovascular: normal peripheral pulses, normal rate - SR Abdomen: normal bowel sounds, soft, non tender Extremities: no edema Skin: no rash Neurologic/Psychiatric: abnormal gait - , alert, responsive Musculoskeletal: atrophy - BLE Microbiology Date/Time Source Procedure Growth Status 03/20/17 18:34 Urine,Clean Catch Urine Culture - Final Escherichia Coli Complete Laboratory Tests 03/22/17 06:25: White Blood Count 7.9, Red Blood Count 4.23, Hemoglobin 13.3, Hematocrit 38.7, Mean Corpuscular Volume 91, Mean Corpuscular Hemoglobin 31.4H, Mean Corpuscular Hemoglobin Concent 34.3, Red Cell Distribution Width 10.7L, Platelet Count 251, Mean Platelet Volume 7.3, Neutrophils (%) (Auto) 73.4, Lymphocytes (%) (Auto) 18.0L, Monocytes (%) (Auto) 7.0, Eosinophils (%) (Auto) 0.7, Basophils (%) (Auto ) 1.0, Erythrocyte Sedimentation Rate 46H, Sodium Level 144, Potassium Level 3.9 , Chloride Level 107, Carbon Dioxide Level 27, Anion Gap 10, Blood Urea Nitrogen 18, Creatinine 1.0, Estimat Glomerular Filtration Rate > 60, Glucose Level 192H, Hemoglobin A1c 8.7H, Calcium Level 9.1, Phosphorus Level 4.1, Magnesium Level 1.4L, Total Bilirubin 0.3, Aspartate Amino Transf (AST/SGOT) 14L , Alanine Aminotransferase (ALT/SGPT) 18, Alkaline Phosphatase 68, Total Protein 7.1, Albumin 3.1L, Globulin 4.0, Albumin/Globulin Ratio 0.8L, Triglycerides Level 58, Cholesterol Level 168, LDL Cholesterol 84, HDL Cholesterol 64H, Cholesterol/HDL Ratio 2.6L Current Medications Medications (Trade) Dose Ordered Sig/Uyen Route PRN Reason Start Time Stop Time Status Last Admin Dose Admin Acetaminophen (Tylenol) 650 mg Q4H PRN ORAL fever 03/20/17 22:30 04/19/17 22:29 Albuterol/ Ipratropium (Albuterol/ Ipratropium) 3 ml Q4H PRN HHN Shortness of Breath 03/20/17 22:30 03/25/17 22:29 Aripiprazole (Abilify) 30 mg DAILY ORAL 03/21/17 09:00 04/20/17 08:59 03/22/17 09:43 Cefepime HCl 2 gm/ Dextrose 55 ml @ 110 mls/hr EVERY 12 HOURS IV 03/21/17 09:00 03/28/17 08:59 03/22/17 09:43 Cilostazol (Pletal) 100 mg TWICE A DAY ORAL 03/21/17 09:00 04/20/17 08:59 03/22/17 09:43 Dextrose (Dextrose 50%) STAT PRN IV Hypoglycemia 03/20/17 22:30 04/19/17 22:29 Divalproex Sodium (Depakote ER) 500 mg QHS ORAL 03/21/17 21:00 04/20/17 20:59 03/21/17 21:38 Gabapentin (Neurontin) 300 mg BID ORAL 03/21/17 09:00 04/20/17 08:59 03/22/17 09:43 Heparin Sodium (Porcine) (Heparin 5000 units/ml) 5,000 units EVERY 12 HOURS SUBQ 03/21/17 09:00 04/20/17 08:59 03/22/17 09:45 Insulin Aspart (NovoLOG) BEFORE MEALS AND HS SUBQ 03/21/17 06:30 04/20/17 06:29 03/22/17 11:56 Morphine Sulfate (Morphine Sulfate) 2 mg Q4H PRN IVP Moderate Pain (Pain Scale 4-6) 03/20/17 22:30 03/27/17 22:29 03/22/17 11:22 Ondansetron HCl (Zofran) 4 mg Q6H PRN IVP Nausea & Vomiting 03/20/17 22:30 04/19/17 22:29 Phenazopyridine HCl (Pyridium) 100 mg DAILY PRN ORAL dysuria 03/20/17 22:30 04/19/17 22:29 Polyethylene Glycol (Miralax) 17 gm DAILYPRN PRN ORAL Constipation 03/20/17 22:30 04/19/17 22:29 Sertraline HCl (Zoloft) 100 mg BID ORAL 03/21/17 09:00 04/20/17 08:59 03/22/17 09:44 Temazepam (Restoril) 15 mg HSPRN PRN ORAL Insomnia 03/20/17 22:30 03/27/17 22:29 Tatiana Smith NP ([place]) Mar 22, 2017 15:13
[2017-03-22] MEDS ORDERED: cefTRIAXone 1 GM in D5W 55 ML IVPB SCH (15:15)
[2017-03-22 15:47] VITALS: BP 138/84
[2017-03-22] MEDS ORDERED: NovoLOG Insulin Flexpen SUBQ SCH (16:30)
[2017-03-22] MEDS ORDERED: Albuterol/Ipratropium 3ml neb HHN PRN ×2 (16:30→18:30)
[2017-03-22] MEDS ORDERED: Morphine Sulfate 2mg/ml Inj IVP PRN ×2 (16:30)
[2017-03-22] MEDS ORDERED: Miralax 17gm pkt ORAL PRN ×2 (16:30)
[2017-03-22] MEDS ORDERED: Sertraline 100mg tab ORAL SCH (18:00)
[2017-03-22] MEDS ORDERED: Cilostazol 100mg tab ORAL SCH (18:00)
[2017-03-22 20:19] VITALS: BP 125/79
[2017-03-22] MEDS: Depakote ER 500mg tab ORAL SCH (20:41)
[2017-03-22] MEDS: ceFAZolin sod 1 GM in D5W 55 ML IVPB SCH (20:42)
[2017-03-22] MEDS ORDERED: Cefepime HCl 2 GM in D5W 55 ML IVPB SCH (21:00)
[2017-03-22] MEDS ORDERED: Heparin 5000 units/ml inj SUBQ SCH (21:00)
[2017-03-22] MEDS ORDERED: Depakote ER 500mg tab ORAL SCH (21:00)
[2017-03-22] MEDS ORDERED: ceFAZolin sod 1 GM in D5W 55 ML IVPB SCH ×4 (22:00)
[2017-03-23 00:21] VITALS: BP 130/70
[2017-03-23 04:00] VITALS: BP 141/77
[2017-03-23] MEDS: ceFAZolin sod 1 GM in D5W 55 ML IVPB SCH ×3 (05:24→20:38)
[2017-03-23] MEDS: NovoLOG Insulin Flexpen SUBQ SCH ×4 (05:26→20:40)
[2017-03-23 08:00] VITALS: BP 134/75
[2017-03-23] MEDS: Sertraline 100mg tab ORAL SCH ×2 (09:12→17:15)
[2017-03-23] MEDS: Cilostazol 100mg tab ORAL SCH ×2 (09:12→17:16)
[2017-03-23] MEDS: Heparin 5000 units/ml inj SUBQ SCH ×2 (09:14→20:41)
[2017-03-23] MEDS ORDERED: CEPHALEXIN500 MG ORAL (10:32)
--- NOTE | 2017-03-23 10:33 | Pulmonology Progress Note ---
Assessment/Plan Assessment/Plan ASSESSMENT s/p fall with hx of recurrent falls hyperkalemia -resolved s/p CVA with RSW bilateral hydrocephalus ( likely due to congenital syndrome) UTI / E coli DM HTN MDD PLAN OF CARE [facility] floor Abx urine cx + E coli , ID follows CT head + bilateral hydrocephalus likely 2 to congenital syndrome Fall precautions PT/OT neuro follows Lipid panel stable ASA, BS management with SS of insulin and NPH, GkH6c-5.7 not at goal BP stable, DVT prophylaxis bowel regimen a/depressant add nasal spray and HHN prn dc plan for am home with HH for PT/OT on oral abx case discussed and evaluated by supervising physician Subjective Allergies: Coded Allergies: No Known Allergies (Unverified , 03/20/17) Subjective afebrile, no leukocytosis denies chest pain, SOB on RA sat stable reports nasal congestion Objective Last 24 Hour Vital Signs Date Time Temp Pulse Resp B/P (MAP) Pulse Ox O2 Delivery O2 Flow Rate FiO2 03/23/17 08:00 98.2 99 18 134/75 95 Room Air 03/23/17 07:25 99 18 Room Air 03/23/17 04:00 99.0 95 18 141/77 92 Room Air 03/23/17 00:21 97.9 80 17 130/70 98 Room Air 03/22/17 21:38 86 18 Room Air 03/22/17 20:19 99.5 93 19 125/79 100 Room Air 03/22/17 15:47 97.7 103 18 138/84 96 Room Air 03/22/17 12:00 96 03/22/17 11:52 97.9 03/22/17 11:46 97.9 102 18 127/85 97 Room Air Objective General Appearance: no acute distress, awake, responsive HEENT: normocephalic, atraumatic, anicteric Respiratory/Chest: lungs clear, no respiratory distress Cardiovascular: normal peripheral pulses, normal rate - SR Abdomen: normal bowel sounds, soft, non tender Extremities: no edema Skin: no rash Neurologic/Psychiatric: abnormal gait , alert, responsive Musculoskeletal: atrophy - BLE Microbiology Date/Time Source Procedure Growth Status 03/21/17 08:30 Blood Blood Culture - Preliminary NO GROWTH AFTER 24 HOURS Resulted 03/21/17 08:30 Blood Blood Culture - Preliminary NO GROWTH AFTER 24 HOURS Resulted 03/20/17 18:34 Urine,Clean Catch Urine Culture - Final Escherichia Coli Complete 03/21/17 05:00 Rectum VRE Culture - Final NO VANCOMYCIN RESISTANT ENTEROCOCCUS ... Complete Current Medications Medications (Trade) Dose Ordered Sig/Uyen Route PRN Reason Start Time Stop Time Status Last Admin Dose Admin Acetaminophen (Tylenol) 650 mg Q4H PRN ORAL fever 03/22/17 16:30 04/19/17 16:29 Albuterol/ Ipratropium (Albuterol/ Ipratropium) 3 ml Q4H PRN HHN Shortness of Breath 03/22/17 16:30 03/25/17 16:29 Aripiprazole (Abilify) 30 mg DAILY ORAL 03/23/17 09:00 04/20/17 08:59 03/23/17 09:13 Cefazolin Sodium 1 gm/Dextrose 55 ml @ 110 mls/hr Q8HR IVPB 03/22/17 22:00 03/29/17 21:59 03/23/17 05:24 Cilostazol (Pletal) 100 mg TWICE A DAY ORAL 03/22/17 18:00 04/20/17 08:59 03/23/17 09:12 Dextrose (Dextrose 50%) STAT PRN IV Hypoglycemia 03/22/17 16:30 04/19/17 16:29 Divalproex Sodium (Depakote ER) 500 mg QHS ORAL 03/22/17 21:00 04/20/17 20:59 03/22/17 20:41 Gabapentin (Neurontin) 300 mg BID ORAL 03/22/17 18:00 04/20/17 08:59 03/23/17 09:13 Heparin Sodium (Porcine) (Heparin 5000 units/ml) 5,000 units EVERY 12 HOURS SUBQ 03/22/17 21:00 04/20/17 08:59 03/23/17 09:14 Insulin Aspart (NovoLOG) BEFORE MEALS AND HS SUBQ 03/22/17 16:30 04/20/17 06:29 03/23/17 05:26 Morphine Sulfate (Morphine Sulfate) 2 mg Q4H PRN IVP Moderate Pain (Pain Scale 4-6) 03/22/17 16:30 03/27/17 16:29 Ondansetron HCl (Zofran) 4 mg Q6H PRN IVP Nausea & Vomiting 03/22/17 16:30 04/19/17 22:29 Phenazopyridine HCl (Pyridium) 100 mg DAILYPRN PRN ORAL dysuria 03/22/17 16:30 04/21/17 16:29 Polyethylene Glycol (Miralax) 17 gm DAILYPRN PRN ORAL Constipation 03/22/17 16:30 04/19/17 16:29 Sertraline HCl (Zoloft) 100 mg BID ORAL 03/22/17 18:00 04/20/17 08:59 03/23/17 09:12 Temazepam (Restoril) 15 mg HSPRN PRN ORAL Insomnia 03/22/17 16:30 03/27/17 16:29 Luis FinneganEastern Niagara HospitalTatiana Bryan NP Mar 23, 2017 10:33
[2017-03-23 12:00] VITALS: BP 123/82
[2017-03-23 16:00] VITALS: BP 118/82
[2017-03-23] MEDS: Flonase Nasal Inhaler 16gm NASAL SCH (18:00)
[2017-03-23 20:00] VITALS: BP 119/74
[2017-03-23] MEDS: Depakote ER 500mg tab ORAL SCH (20:38)
[2017-03-24 00:25] VITALS: BP 124/70
[2017-03-24 04:00] VITALS: BP 121/74
[2017-03-24 05:32] LABS: BASOPHILS % (AUTO) 0.8 % (0.0-2.0); EOSINOPHILS % (AUTO) 2.8 % (0.0-3.0); LYMPHOCYTES % (AUTO) 33.9 % (20.0-45.0); MEAN CORPUSCULAR HEMOGLOBIN 30.9 PG (27.0-31.0); MEAN CORPUSCULAR HGB CONC 34.2 G/DL (32.0-36.0); MEAN CORPUSCULAR VOLUME 90 FL (80-99); MEAN PLATELET VOLUME 7.2 FL (6.5-10.1); MONOCYTES % (AUTO) 9.3 % (1.0-10.0); NEUTROPHILS % (AUTO) 53.1 % (45.0-75.0); PLATELET COUNT 236 K/UL (150-450); RED BLOOD COUNT 3.72 M/UL (4.20-5.40); RED CELL DISTRIBUTION WIDTH 10.6 % (11.6-14.8); WHITE BLOOD COUNT 6.5 K/UL (4.8-10.8)
[2017-03-24 05:38] LABS: ANION GAP 9 mmol/L (5-15); CALCIUM 8.8 MG/DL (8.5-10.1); CARBON DIOXIDE 27 MMOL/L (21-32); CHLORIDE 107 MMOL/L (98-107); CREATININE 0.7 MG/DL (0.55-1.30); GLOMERULAR FILTRATION RATE > 60 mL/min (>60); POTASSIUM 3.5 MMOL/L (3.5-5.1); SODIUM 142 MMOL/L (136-145)
[2017-03-24] MEDS: ceFAZolin sod 1 GM in D5W 55 ML IVPB SCH ×3 (05:40→21:42)
[2017-03-24] MEDS: NovoLOG Insulin Flexpen SUBQ SCH ×4 (05:41→20:30)
[2017-03-24 08:00] VITALS: BP 126/74
[2017-03-24] MEDS: Cilostazol 100mg tab ORAL SCH ×2 (08:13→17:46)
[2017-03-24] MEDS: Flonase Nasal Inhaler 16gm NASAL SCH ×2 (08:13→17:46)
[2017-03-24] MEDS: Sertraline 100mg tab ORAL SCH ×2 (08:14→17:46)
--- NOTE | 2017-03-24 08:15 | Consultation ---
DATE OF CONSULTATION: 03/21/2017 INFECTIOUS DISEASES CONSULTATION REQUESTING PHYSICIAN: Seema Lazaro M.D. REASON FOR CONSULTATION: Urinary tract infection. HISTORY OF PRESENT ILLNESS: This is a -year-old female with a history of congenital hydrocephalus and recurrent falls was admitted on 03/20/2017 with another fall with head trauma. CT of the head shows no acute intracranial bleed or mass effect. She still complains of some posterior headache. She is afebrile without leukocytosis. Urinalysis suggests possible urinary tract infection and the patient did endorse some urinary frequency prior to admission. She has been started on empiric IV vancomycin and cefepime and ID now consulted to assist in management. PAST MEDICAL HISTORY: 1. Depression. 2. Diabetes. 3. Stroke. 4. Hypertension. 5. Congenital hydrocephalus. MEDICATIONS: 1. Vancomycin. 2. Cefepime. 3. Abilify. 4. Depakote. 5. Pletal. 6. Neurontin. 7. Zoloft. 8. Subcutaneous heparin. ALLERGIES: No known drug allergies. SOCIAL HISTORY: The patient lives in independent living facility. No active tobacco, alcohol, or illicit drug abuse. FAMILY HISTORY: Reviewed and noncontributory. REVIEW OF SYSTEMS: As per history of present illness. Ten systems reviewed and all pertinent positives and negatives noted. PHYSICAL EXAMINATION: GENERAL: No apparent distress, nontoxic appearing. VITAL SIGNS: Maximum temperature 98.1 degrees, blood pressure 126/72, heart rate 16, respiratory rate 20, and saturating 99% on room air. HEENT: Normocephalic and atraumatic. No oral lesions. CARDIOVASCULAR: Regular rate and rhythm. No murmurs. PULMONARY: Clear to auscultation bilaterally. ABDOMEN: Bowel sounds present. Soft, nondistended, and nontender. EXTREMITIES: No edema. SKIN: No rash. NEUROLOGICAL: Deficits consistent with known disease. LABORATORY DATA: White blood cell count 7.8, hemoglobin 13.6, and platelets 287,000. Sodium 144, potassium 4.4, chloride 106, bicarbonate 33, BUN 17, and creatinine 0.9, and glucose 175. Liver function tests within normal limits. Lipase 224. MICROBIOLOGY: 1. On 03/20/2017, blood culture pending. 2. On 03/20/2017, urine culture greater than 100,000 colony-forming units of gram-negative rods. IMAGING: On 03/20/2017, CT of the head, no acute intracranial bleed or mass effect. Bilateral hydrocephalus. ASSESSMENT: 1. Gram-negative nolberto urinary tract infection with urinary frequency. Culture and sensitivity is pending. 2. Afebrile without leukocytosis. 3. Recurrent falls with head trauma. CT of the head shows no acute findings. 4. Congenital bilateral hydrocephalus. 5. Diabetes type 2 with hyperglycemia. 6. History of stroke. 7. Depression. 8. Hypertension. 9. No known drug allergies. 10. Full Code. PLAN: 1. Continue empiric IV cefepime day #1 pending culture and sensitivity. Can discontinue intravenous vancomycin day #1. 2. Follow up cultures. 3. Monitor CBC and temperatures. 4. Monitor BMP. 5. Fall precautions. Physical and occupational therapy. Thank you. We will follow. Austin Meléndez M.D. DR: CRISTINE JOB#: [id number] CC: Seema Lazaro M.D.; Fax#: [phone] Emeka Chatman M.D; FAX#: [phone]
[2017-03-24] MEDS: Heparin 5000 units/ml inj SUBQ SCH ×2 (08:16→20:30)
--- NOTE | 2017-03-24 10:16 | Infectious Diseases Prog Note ---
Assessment/Plan Assessment/Plan // UTI - Ecoli (S ancef, bactrim; R Cipro/levo) Bcx NTD // Afebrile without leukocytosis // Recurrent falls with head trauma - CT Head: No acute intracranial bleed or mass effect. Bilateral hydrocephalus. 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 // Congenital bilateral hydrocephalus // DM2 with hyperglycemia // h/o CVA // MDD // HTN // NKDA // Full Code PLAN: - Continue IV Ancef ( AB Rx d# ) , upon DC will change to Keflex to complete the course 03/22 SP IV Cefepime #2 03/21 SP IV vancomycin d# 1 - f/u cultures - monitor CBC, temperatures - monitor BMP - fall precautions / PT / OT Subjective Allergies: Coded Allergies: No Known Allergies (Unverified , 03/20/17) Subjective afebrile no leukocytosis Bcx NTD Objective Vital Signs Last 24 Hour Vital Signs Date Time Temp Pulse Resp B/P (MAP) Pulse Ox O2 Delivery O2 Flow Rate FiO2 03/24/17 08:00 97.4 100 16 126/74 96 Room Air 03/24/17 04:00 99.1 87 18 121/74 93 Room Air 03/24/17 00:25 98.4 88 18 124/70 95 Room Air 03/23/17 20:00 97.6 97 18 119/74 96 Room Air 03/23/17 19:02 85 18 Room Air 03/23/17 16:00 98.0 95 18 118/82 98 Room Air 03/23/17 12:00 98.4 98 18 123/82 97 Room Air Height (Feet): 5 Height (Inches): 9.00 Weight (Pounds): 241 Abdomen: no organomegaly Objective General Appearance: no acute distress, awake, responsive HEENT: normocephalic, atraumatic, anicteric Respiratory/Chest: lungs clear, no respiratory distress Cardiovascular: normal peripheral pulses, normal rate - SR Abdomen: normal bowel sounds, soft, non tender Extremities: no edema Skin: no rash Neurologic/Psychiatric: abnormal gait , alert, responsive Musculoskeletal: atrophy - BLE Laboratory Tests Test 03/24/17 04:10 White Blood Count 6.5 K/UL (4.8-10.8) Red Blood Count 3.72 M/UL (4.20-5.40) L Hemoglobin 11.5 G/DL (12.0-16.0) L Hematocrit 33.6 % (37.0-47.0) L Mean Corpuscular Volume 90 FL (80-99) Mean Corpuscular Hemoglobin 30.9 PG (27.0-31.0) Mean Corpuscular Hemoglobin Concent 34.2 G/DL (32.0-36.0) Red Cell Distribution Width 10.6 % (11.6-14.8) L Platelet Count 236 K/UL (150-450) Mean Platelet Volume 7.2 FL (6.5-10.1) Neutrophils (%) (Auto) 53.1 % (45.0-75.0) Lymphocytes (%) (Auto) 33.9 % (20.0-45.0) Monocytes (%) (Auto) 9.3 % (1.0-10.0) Eosinophils (%) (Auto) 2.8 % (0.0-3.0) Basophils (%) (Auto) 0.8 % (0.0-2.0) Sodium Level 142 MMOL/L (136-145) Potassium Level 3.5 MMOL/L (3.5-5.1) Chloride Level 107 MMOL/L (98-107) Carbon Dioxide Level 27 MMOL/L (21-32) Anion Gap 9 mmol/L (5-15) Blood Urea Nitrogen 15 mg/dL (7-18) Creatinine 0.7 MG/DL (0.55-1.30) Estimat Glomerular Filtration Rate > 60 mL/min (>60) Glucose Level 146 MG/DL (74-106) H Calcium Level 8.8 MG/DL (8.5-10.1) Current Medications Medications (Trade) Dose Ordered Sig/Uyen Route PRN Reason Start Time Stop Time Status Last Admin Dose Admin Acetaminophen (Tylenol) 650 mg Q4H PRN ORAL fever 03/22/17 16:30 04/19/17 16:29 Albuterol/ Ipratropium (Albuterol/ Ipratropium) 3 ml Q4H PRN HHN Shortness of Breath 03/22/17 16:30 03/25/17 16:29 Aripiprazole (Abilify) 30 mg DAILY ORAL 03/23/17 09:00 04/20/17 08:59 03/24/17 08:13 Cefazolin Sodium 1 gm/Dextrose 55 ml @ 110 mls/hr Q8HR IVPB 03/22/17 22:00 03/29/17 21:59 03/24/17 05:40 Cilostazol (Pletal) 100 mg TWICE A DAY ORAL 03/22/17 18:00 04/20/17 08:59 03/24/17 08:13 Dextrose (Dextrose 50%) STAT PRN IV Hypoglycemia 03/22/17 16:30 04/19/17 16:29 Divalproex Sodium (Depakote ER) 500 mg QHS ORAL 03/22/17 21:00 04/20/17 20:59 03/23/17 20:38 Fluticasone Propionate (Flonase) 1 spray TWICE A DAY NASAL 03/23/17 18:00 04/22/17 17:59 03/24/17 08:13 Gabapentin (Neurontin) 300 mg BID ORAL 03/22/17 18:00 04/20/17 08:59 03/24/17 08:14 Heparin Sodium (Porcine) (Heparin 5000 units/ml) 5,000 units EVERY 12 HOURS SUBQ 03/22/17 21:00 04/20/17 08:59 03/24/17 08:16 Insulin Aspart (NovoLOG) BEFORE MEALS AND HS SUBQ 03/22/17 16:30 04/20/17 06:29 03/24/17 05:41 Morphine Sulfate (Morphine Sulfate) 2 mg Q4H PRN IVP Moderate Pain (Pain Scale 4-6) 03/22/17 16:30 03/27/17 16:29 Ondansetron HCl (Zofran) 4 mg Q6H PRN IVP Nausea & Vomiting 03/22/17 16:30 04/19/17 22:29 Phenazopyridine HCl (Pyridium) 100 mg DAILYPRN PRN ORAL dysuria 03/22/17 16:30 04/21/17 16:29 Polyethylene Glycol (Miralax) 17 gm DAILYPRN PRN ORAL Constipation 03/22/17 16:30 04/19/17 16:29 Sertraline HCl (Zoloft) 100 mg BID ORAL 03/22/17 18:00 04/20/17 08:59 03/24/17 08:14 Temazepam (Restoril) 15 mg HSPRN PRN ORAL Insomnia 03/22/17 16:30 03/27/17 16:29 Shantelle Villafuerte M.D. Mar 24, 2017 10:16
[2017-03-24 12:00] VITALS: BP 131/79
[2017-03-24 16:00] VITALS: BP 118/73
--- NOTE | 2017-03-24 17:32 | Pulmonology Progress Note ---
Assessment/Plan Problems: (1) Urinary tract infection (2) Hyperkalemia (3) Generalized weakness (4) Congenital brain damage (5) Cerebrovascular accident (CVA) Assessment/Plan improving K better continue IV fluids check electroltyes dc home in am with oral abx. Subjective ROS Limited/Unobtainable: No Constitutional: Reports: no symptoms HEENT: Repors: no symptoms, other Allergies: Coded Allergies: No Known Allergies (Unverified , 03/20/17) Objective Last 24 Hour Vital Signs Date Time Temp Pulse Resp B/P (MAP) Pulse Ox O2 Delivery O2 Flow Rate FiO2 03/24/17 12:00 97.3 94 19 131/79 97 Room Air 03/24/17 08:00 97.4 100 16 126/74 96 Room Air 03/24/17 07:52 100 18 Room Air 03/24/17 04:00 99.1 87 18 121/74 93 Room Air 03/24/17 00:25 98.4 88 18 124/70 95 Room Air 03/23/17 20:00 97.6 97 18 119/74 96 Room Air 03/23/17 19:02 85 18 Room Air Intake and Output 03/24/17 03/25/17 19:00 07:00 Intake Total 500 ml Balance 500 ml Intake Oral 500 ml # Voids 1 # Bowel Movements 2 General Appearance: WD/WN HEENT: normocephalic, atraumatic Respiratory/Chest: chest wall non-tender, lungs clear Breasts: no masses Cardiovascular: normal peripheral pulses Abdomen: normal bowel sounds, soft, non tender Genitourinary: normal external genitalia Extremities: no clubbing Skin: no rash Neurologic/Psychiatric: melt superintendant II-XII grossly normal, no motor/sensory deficits Lymphatic: no neck adenopathy Laboratory Tests 03/24/17 04:10: White Blood Count 6.5, Red Blood Count 3.72L, Hemoglobin 11.5L, Hematocrit 33.6L , Mean Corpuscular Volume 90, Mean Corpuscular Hemoglobin 30.9, Mean Corpuscular Hemoglobin Concent 34.2, Red Cell Distribution Width 10.6L, Platelet Count 236, Mean Platelet Volume 7.2, Neutrophils (%) (Auto) 53.1, Lymphocytes (%) (Auto) 33.9, Monocytes (%) (Auto) 9.3, Eosinophils (%) (Auto) 2.8, Basophils (%) (Auto) 0.8, Sodium Level 142, Potassium Level 3.5, Chloride Level 107, Carbon Dioxide Level 27, Anion Gap 9, Blood Urea Nitrogen 15, Creatinine 0.7, Estimat Glomerular Filtration Rate > 60, Glucose Level 146H, Calcium Level 8.8 Current Medications Medications (Trade) Dose Ordered Sig/Uyen Route PRN Reason Start Time Stop Time Status Last Admin Dose Admin Acetaminophen (Tylenol) 650 mg Q4H PRN ORAL fever 03/22/17 16:30 04/19/17 16:29 Albuterol/ Ipratropium (Albuterol/ Ipratropium) 3 ml Q4H PRN HHN Shortness of Breath 03/22/17 16:30 03/25/17 16:29 Aripiprazole (Abilify) 30 mg DAILY ORAL 03/23/17 09:00 04/20/17 08:59 03/24/17 08:13 Cefazolin Sodium 1 gm/Dextrose 55 ml @ 110 mls/hr Q8HR IVPB 03/22/17 22:00 03/29/17 21:59 03/24/17 14:23 Cilostazol (Pletal) 100 mg TWICE A DAY ORAL 03/22/17 18:00 04/20/17 08:59 03/24/17 08:13 Dextrose (Dextrose 50%) STAT PRN IV Hypoglycemia 03/22/17 16:30 04/19/17 16:29 Divalproex Sodium (Depakote ER) 500 mg QHS ORAL 03/22/17 21:00 04/20/17 20:59 03/23/17 20:38 Fluticasone Propionate (Flonase) 1 spray TWICE A DAY NASAL 03/23/17 18:00 04/22/17 17:59 03/24/17 08:13 Gabapentin (Neurontin) 300 mg BID ORAL 03/22/17 18:00 04/20/17 08:59 03/24/17 08:14 Heparin Sodium (Porcine) (Heparin 5000 units/ml) 5,000 units EVERY 12 HOURS SUBQ 03/22/17 21:00 04/20/17 08:59 03/24/17 08:16 Insulin Aspart (NovoLOG) BEFORE MEALS AND HS SUBQ 03/22/17 16:30 04/20/17 06:29 03/24/17 16:31 Morphine Sulfate (Morphine Sulfate) 2 mg Q4H PRN IVP Moderate Pain (Pain Scale 4-6) 03/22/17 16:30 03/27/17 16:29 Ondansetron HCl (Zofran) 4 mg Q6H PRN IVP Nausea & Vomiting 03/22/17 16:30 04/19/17 22:29 Phenazopyridine HCl (Pyridium) 100 mg DAILYPRN PRN ORAL dysuria 03/22/17 16:30 04/21/17 16:29 Polyethylene Glycol (Miralax) 17 gm DAILYPRN PRN ORAL Constipation 03/22/17 16:30 04/19/17 16:29 Sertraline HCl (Zoloft) 100 mg BID ORAL 03/22/17 18:00 04/20/17 08:59 03/24/17 08:14 Temazepam (Restoril) 15 mg HSPRN PRN ORAL Insomnia 03/22/17 16:30 03/27/17 16:29 ARIN CLEANING Mar 24, 2017 17:32
[2017-03-24] MEDS: Depakote ER 500mg tab ORAL SCH (20:26)
[2017-03-24 20:36] VITALS: BP 130/79
[2017-03-25 00:16] VITALS: BP 129/65
[2017-03-25 04:00] VITALS: BP 137/83
[2017-03-25] MEDS: ceFAZolin sod 1 GM in D5W 55 ML IVPB SCH (05:47)
[2017-03-25] MEDS: NovoLOG Insulin Flexpen SUBQ SCH ×2 (05:48→12:12)
[2017-03-25 06:12] LABS: ALANINE AMINOTRANSFERASE 19 U/L (12-78); ALBUMIN/GLOBULIN RATIO 0.7 (1.0-2.7); ANION GAP 6 mmol/L (5-15); ASPARTATE AMINO TRANSFERASE 18 U/L (15-37); CALCIUM 9.2 MG/DL (8.5-10.1); CARBON DIOXIDE 28 MMOL/L (21-32); CHLORIDE 104 MMOL/L (98-107); CREATININE 0.8 MG/DL (0.55-1.30); GLOMERULAR FILTRATION RATE > 60 mL/min (>60); MAGNESIUM 1.6 MG/DL (1.8-2.4); PHOSPHORUS 2.5 MG/DL (2.5-4.9); SODIUM 138 MMOL/L (136-145); TOTAL PROTEIN 7.3 G/DL (6.4-8.2)
[2017-03-25 06:18] LABS: BASOPHILS % (AUTO) 1.1 % (0.0-2.0); EOSINOPHILS % (AUTO) 1.9 % (0.0-3.0); LYMPHOCYTES % (AUTO) 30.6 % (20.0-45.0); MEAN CORPUSCULAR HEMOGLOBIN 30.6 PG (27.0-31.0); MEAN CORPUSCULAR HGB CONC 33.5 G/DL (32.0-36.0); MEAN CORPUSCULAR VOLUME 91 FL (80-99); MEAN PLATELET VOLUME 7.3 FL (6.5-10.1); MONOCYTES % (AUTO) 8.5 % (1.0-10.0); NEUTROPHILS % (AUTO) 58.1 % (45.0-75.0); PLATELET COUNT 270 K/UL (150-450); RED BLOOD COUNT 4.07 M/UL (4.20-5.40); RED CELL DISTRIBUTION WIDTH 10.8 % (11.6-14.8)
[2017-03-25 08:07] VITALS: BP 130/77
[2017-03-25] MEDS: Flonase Nasal Inhaler 16gm NASAL SCH (08:26)
[2017-03-25] MEDS: Sertraline 100mg tab ORAL SCH (08:26)
[2017-03-25] MEDS: Cilostazol 100mg tab ORAL SCH (08:27)
[2017-03-25] MEDS: Heparin 5000 units/ml inj SUBQ SCH (08:28)
[2017-03-25 11:36] VITALS: BP 154/84
--- NOTE | 2017-03-25 12:09 | Infectious Diseases Prog Note ---
Assessment/Plan Assessment/Plan // UTI - Ecoli (S ancef, bactrim; R Cipro/levo) Bcx NTD // Afebrile without leukocytosis // Recurrent falls with head trauma - CT Head: No acute intracranial bleed or mass effect. Bilateral hydrocephalus. 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 // Congenital bilateral hydrocephalus // DM2 with hyperglycemia // h/o CVA // MDD // HTN // NKDA // Full Code PLAN: - Continue IV Ancef ( AB Rx d# ) , upon DC will change to Keflex to complete the course 03/22 SP IV Cefepime #2 03/21 SP IV vancomycin d# 1 - f/u cultures - monitor CBC, temperatures - monitor BMP - fall precautions / PT / OT Subjective Allergies: Coded Allergies: No Known Allergies (Unverified , 03/20/17) Subjective afebrile no leukocytosis Bcx NTD Objective Vital Signs Last 24 Hour Vital Signs Date Time Temp Pulse Resp B/P (MAP) Pulse Ox O2 Delivery O2 Flow Rate FiO2 03/25/17 11:36 98.1 80 20 154/84 97 Room Air 03/25/17 08:07 97.3 82 20 130/77 97 Room Air 03/25/17 04:00 97.7 84 17 137/83 96 Room Air 03/25/17 00:16 97.5 87 19 129/65 96 Room Air 03/24/17 20:36 97.7 84 18 130/79 95 Room Air 03/24/17 19:00 86 18 Room Air 03/24/17 16:00 97.6 82 17 118/73 96 Room Air Height (Feet): 5 Height (Inches): 9.00 Weight (Pounds): 241 Objective General Appearance: no acute distress, awake, responsive HEENT: normocephalic, atraumatic, anicteric Respiratory/Chest: lungs clear, no respiratory distress Cardiovascular: normal peripheral pulses, normal rate - SR Abdomen: normal bowel sounds, soft, non tender Extremities: no edema Skin: no rash Neurologic/Psychiatric: abnormal gait , alert, responsive Musculoskeletal: atrophy - BLE Laboratory Tests Test 03/25/17 04:45 White Blood Count 7.0 K/UL (4.8-10.8) Red Blood Count 4.07 M/UL (4.20-5.40) L Hemoglobin 12.5 G/DL (12.0-16.0) Hematocrit 37.2 % (37.0-47.0) Mean Corpuscular Volume 91 FL (80-99) Mean Corpuscular Hemoglobin 30.6 PG (27.0-31.0) Mean Corpuscular Hemoglobin Concent 33.5 G/DL (32.0-36.0) Red Cell Distribution Width 10.8 % (11.6-14.8) L Platelet Count 270 K/UL (150-450) Mean Platelet Volume 7.3 FL (6.5-10.1) Neutrophils (%) (Auto) 58.1 % (45.0-75.0) Lymphocytes (%) (Auto) 30.6 % (20.0-45.0) Monocytes (%) (Auto) 8.5 % (1.0-10.0) Eosinophils (%) (Auto) 1.9 % (0.0-3.0) Basophils (%) (Auto) 1.1 % (0.0-2.0) Sodium Level 138 MMOL/L (136-145) Potassium Level 4.0 MMOL/L (3.5-5.1) Chloride Level 104 MMOL/L (98-107) Carbon Dioxide Level 28 MMOL/L (21-32) Anion Gap 6 mmol/L (5-15) Blood Urea Nitrogen 16 mg/dL (7-18) Creatinine 0.8 MG/DL (0.55-1.30) Estimat Glomerular Filtration Rate > 60 mL/min (>60) Glucose Level 222 MG/DL (74-106) H Calcium Level 9.2 MG/DL (8.5-10.1) Phosphorus Level 2.5 MG/DL (2.5-4.9) Magnesium Level 1.6 MG/DL (1.8-2.4) L Total Bilirubin 0.3 MG/DL (0.2-1.0) Aspartate Amino Transf (AST/SGOT) 18 U/L (15-37) Alanine Aminotransferase (ALT/SGPT) 19 U/L (12-78) Alkaline Phosphatase 64 U/L (46-116) Total Protein 7.3 G/DL (6.4-8.2) Albumin 3.0 G/DL (3.4-5.0) L Globulin 4.3 g/dL Albumin/Globulin Ratio 0.7 (1.0-2.7) L Current Medications Medications (Trade) Dose Ordered Sig/Uyen Route PRN Reason Start Time Stop Time Status Last Admin Dose Admin Acetaminophen (Tylenol) 650 mg Q4H PRN ORAL fever 03/22/17 16:30 04/19/17 16:29 Albuterol/ Ipratropium (Albuterol/ Ipratropium) 3 ml Q4H PRN HHN Shortness of Breath 03/22/17 16:30 03/25/17 16:29 Aripiprazole (Abilify) 30 mg DAILY ORAL 03/23/17 09:00 04/20/17 08:59 03/25/17 08:26 Cefazolin Sodium 1 gm/Dextrose 55 ml @ 110 mls/hr Q8HR IVPB 03/22/17 22:00 03/29/17 21:59 03/25/17 05:47 Cilostazol (Pletal) 100 mg TWICE A DAY ORAL 03/22/17 18:00 04/20/17 08:59 03/25/17 08:27 Dextrose (Dextrose 50%) STAT PRN IV Hypoglycemia 03/22/17 16:30 04/19/17 16:29 Divalproex Sodium (Depakote ER) 500 mg QHS ORAL 03/22/17 21:00 04/20/17 20:59 03/24/17 20:26 Fluticasone Propionate (Flonase) 1 spray TWICE A DAY NASAL 03/23/17 18:00 04/22/17 17:59 03/25/17 08:26 Gabapentin (Neurontin) 300 mg BID ORAL 03/22/17 18:00 04/20/17 08:59 03/25/17 08:27 Heparin Sodium (Porcine) (Heparin 5000 units/ml) 5,000 units EVERY 12 HOURS SUBQ 03/22/17 21:00 04/20/17 08:59 03/25/17 08:28 Insulin Aspart (NovoLOG) BEFORE MEALS AND HS SUBQ 03/22/17 16:30 04/20/17 06:29 03/25/17 05:48 Morphine Sulfate (Morphine Sulfate) 2 mg Q4H PRN IVP Moderate Pain (Pain Scale 4-6) 03/22/17 16:30 03/27/17 16:29 Ondansetron HCl (Zofran) 4 mg Q6H PRN IVP Nausea & Vomiting 03/22/17 16:30 04/19/17 22:29 Phenazopyridine HCl (Pyridium) 100 mg DAILYPRN PRN ORAL dysuria 03/22/17 16:30 04/21/17 16:29 Polyethylene Glycol (Miralax) 17 gm DAILYPRN PRN ORAL Constipation 03/22/17 16:30 04/19/17 16:29 Sertraline HCl (Zoloft) 100 mg BID ORAL 03/22/17 18:00 04/20/17 08:59 03/25/17 08:26 Temazepam (Restoril) 15 mg HSPRN PRN ORAL Insomnia 03/22/17 16:30 03/27/17 16:29 03/25/17 00:25 Shantelle Villafuerte M.D. Mar 25, 2017 12:09
--- NOTE | 2017-03-25 13:40 | Pulmonology Progress Note ---
Assessment/Plan Problems: (1) Urinary tract infection (2) Hyperkalemia (3) Generalized weakness (4) Congenital brain damage (5) Cerebrovascular accident (CVA) Assessment/Plan improving continue IV fluids check electroltyes dc today with oral abx. Subjective ROS Limited/Unobtainable: No Constitutional: Reports: no symptoms HEENT: Repors: no symptoms Respiratory: Reports: no symptoms Cardiovascular: Reports: no symptoms Gastrointestinal/Abdominal: Reports: no symptoms Allergies: Coded Allergies: No Known Allergies (Unverified , 03/20/17) Objective Last 24 Hour Vital Signs Date Time Temp Pulse Resp B/P (MAP) Pulse Ox O2 Delivery O2 Flow Rate FiO2 03/25/17 11:36 98.1 80 20 154/84 97 Room Air 03/25/17 08:07 97.3 82 20 130/77 97 Room Air 03/25/17 04:00 97.7 84 17 137/83 96 Room Air 03/25/17 00:16 97.5 87 19 129/65 96 Room Air 03/24/17 20:36 97.7 84 18 130/79 95 Room Air 03/24/17 19:00 86 18 Room Air 03/24/17 16:00 97.6 82 17 118/73 96 Room Air Intake and Output 03/25/17 03/26/17 19:00 07:00 Intake Total 750 ml Balance 750 ml Intake Oral 750 ml # Voids 4 # Bowel Movements 2 General Appearance: WD/WN HEENT: normocephalic, atraumatic Respiratory/Chest: chest wall non-tender, lungs clear Breasts: no masses Cardiovascular: normal peripheral pulses, regular rhythm Abdomen: normal bowel sounds, soft, non tender Extremities: no cyanosis, no clubbing Skin: no rash Laboratory Tests 03/25/17 04:45: White Blood Count 7.0, Red Blood Count 4.07L, Hemoglobin 12.5, Hematocrit 37.2, Mean Corpuscular Volume 91, Mean Corpuscular Hemoglobin 30.6, Mean Corpuscular Hemoglobin Concent 33.5, Red Cell Distribution Width 10.8L, Platelet Count 270, Mean Platelet Volume 7.3, Neutrophils (%) (Auto) 58.1, Lymphocytes (%) (Auto) 30.6, Monocytes (%) (Auto) 8.5, Eosinophils (%) (Auto) 1.9, Basophils (%) (Auto ) 1.1, Sodium Level 138, Potassium Level 4.0, Chloride Level 104, Carbon Dioxide Level 28, Anion Gap 6, Blood Urea Nitrogen 16, Creatinine 0.8, Estimat Glomerular Filtration Rate > 60, Glucose Level 222H, Calcium Level 9.2, Phosphorus Level 2.5, Magnesium Level 1.6L, Total Bilirubin 0.3, Aspartate Amino Transf (AST/SGOT) 18, Alanine Aminotransferase (ALT/SGPT) 19, Alkaline Phosphatase 64, Total Protein 7.3, Albumin 3.0L, Globulin 4.3, Albumin/Globulin Ratio 0.7L Current Medications Medications (Trade) Dose Ordered Sig/Uyen Route PRN Reason Start Time Stop Time Status Last Admin Dose Admin Acetaminophen (Tylenol) 650 mg Q4H PRN ORAL fever 03/22/17 16:30 04/19/17 16:29 Albuterol/ Ipratropium (Albuterol/ Ipratropium) 3 ml Q4H PRN HHN Shortness of Breath 03/22/17 16:30 03/25/17 16:29 Aripiprazole (Abilify) 30 mg DAILY ORAL 03/23/17 09:00 04/20/17 08:59 03/25/17 08:26 Cefazolin Sodium 1 gm/Dextrose 55 ml @ 110 mls/hr Q8HR IVPB 03/22/17 22:00 03/29/17 21:59 03/25/17 05:47 Cilostazol (Pletal) 100 mg TWICE A DAY ORAL 03/22/17 18:00 04/20/17 08:59 03/25/17 08:27 Dextrose (Dextrose 50%) STAT PRN IV Hypoglycemia 03/22/17 16:30 04/19/17 16:29 Divalproex Sodium (Depakote ER) 500 mg QHS ORAL 03/22/17 21:00 04/20/17 20:59 03/24/17 20:26 Fluticasone Propionate (Flonase) 1 spray TWICE A DAY NASAL 03/23/17 18:00 04/22/17 17:59 03/25/17 08:26 Gabapentin (Neurontin) 300 mg BID ORAL 03/22/17 18:00 04/20/17 08:59 03/25/17 08:27 Heparin Sodium (Porcine) (Heparin 5000 units/ml) 5,000 units EVERY 12 HOURS SUBQ 03/22/17 21:00 04/20/17 08:59 03/25/17 08:28 Insulin Aspart (NovoLOG) BEFORE MEALS AND HS SUBQ 03/22/17 16:30 04/20/17 06:29 03/25/17 12:12 Morphine Sulfate (Morphine Sulfate) 2 mg Q4H PRN IVP Moderate Pain (Pain Scale 4-6) 03/22/17 16:30 03/27/17 16:29 Ondansetron HCl (Zofran) 4 mg Q6H PRN IVP Nausea & Vomiting 03/22/17 16:30 04/19/17 22:29 Phenazopyridine HCl (Pyridium) 100 mg DAILYPRN PRN ORAL dysuria 03/22/17 16:30 04/21/17 16:29 Polyethylene Glycol (Miralax) 17 gm DAILYPRN PRN ORAL Constipation 03/22/17 16:30 04/19/17 16:29 Sertraline HCl (Zoloft) 100 mg BID ORAL 03/22/17 18:00 04/20/17 08:59 03/25/17 08:26 Temazepam (Restoril) 15 mg HSPRN PRN ORAL Insomnia 03/22/17 16:30 03/27/17 16:29 03/25/17 00:25 ARIN CLEANING Mar 25, 2017 13:40
[2017-03-25] MEDS ORDERED: Tubing IV Secondary IV ONE (13:58)
[2017-03-25] MEDS ORDERED: NS 500ML ONE (13:58)
[2017-03-25] MEDS ORDERED: NS 275ml ONE (13:58)
--- NOTE | 2017-03-27 09:16 | Discharge Summary ---
Discharge Summary Hospital Course Date of Admission Mar 20, 2017 at 21:15 Date of Discharge Mar 25, 2017 at 13:59 Admitting Diagnosis Hyperkalemia, generalized weakness HPI Richelle Zazueta is a 56 year old female who was admitted on Mar 20, 2017 at 21:15 for Hyperkalemia, Generalized Weakness Hospital Course [id number] Discharge Discharge Disposition Patient was discharged to Home (01) Discharge Diagnoses: Marcia Keene NP Mar 27, 2017 09:16
--- NOTE | 2017-03-27 17:45 | Discharge Summary 2 SIG ---
DATE OF ADMISSION: 03/20/2017 DATE OF DISCHARGE: 03/25/2017 CONSULTANTS: 1. Shantelle Villafuerte M.D. 2. Brendan Cutler M.D. BRIEF HOSPITAL COURSE: The patient is a 56-year-old female with history of congenital brain malformation and right-sided weakness secondary to CVA, diabetes mellitus, hypertension, presented to ED complaining of pain after a fall. She stated that she often falls due to weakness. She slipped and fell and hit the back of her head. She denied loss of consciousness. Denied nausea or vomiting, blurred vision, neck pain, and chest pain. On evaluation at ED, blood work was significant for hyperkalemia. Potassium level of 5.3, glucose was 387 and urinalysis with infection. She was given IV fluids and Kayexalate and was started on IV antibiotic. She was admitted for UTI and hyperkalemia. She underwent neurological evaluation. CT of the brain was markedly abnormal with bilateral hydrocephalus, suspect to have congenital syndrome given presence of large retrocerebellar cyst. Neurological evaluation showed no evidence of acute stroke. She had a prior left middle cerebral artery distribution stroke with right hemiparesis, which was stable. She was continued on Depakote. She was given empiric IV cefepime pending culture results. Urine culture showed growth of E. coli. Blood culture did not isolate any growth. She was given aspirin and blood glucose was monitored. A1c was 8.7. She was given NPH and sliding scale of insulin. She was continued on antidepressants and underwent physical and occupational therapy. Hyperkalemia resolved. She was eventually discharged home to continue p.o. antibiotics. FINAL DIAGNOSES: 1. Urinary tract infection with E. coli. 2. Hyperkalemia. 3. Generalized weakness. 4. Congenital brain damage. 5. Old CVA with right hemiparesis. 6. Diabetes mellitus type 2, out of control. 7. Hypertension. 8. Chronic congenital bilateral hydrocephalus with large retrocerebellar cyst. 9. 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 10. Cephalgia, muscle contraction type. 11. Major depressive disorder. DISPOSITION: The patient was discharged home. DISCHARGE MEDICATIONS: Refer to medication list. Continue with Keflex 500 mg q.6 hours. Seema Lazaro M.D. I have been assigned to dictate discharge summary on this account and I was not involved in the patient's management. Marcia Keene N.P. DR: Rosa Elena JOB#: [id number] CC: RENETTA
--- NOTE | 2017-04-08 14:48 | Cardiology Report ---
APPROVED REPORT EKG Measurement Heart [id number] [id number] Normal sinus rhythm Normal ECG
== END 2017-03-25 13:59 | disposition home health service (06) | DRG 463 ==
LOC: EDBD 15:44 → EMR 17:05 → EDBEDREQSVC 19:52 → 2E 21:15 → EDBEDREQ 22:34 → 2E 03-22 07:57 → 3E 03-22 15:59
DX: N39.0 Urinary tract infection, site not specified (principal); E11.65 Type 2 diabetes mellitus with hyperglycemia; I10 Essential (primary) hypertension; E87.5 Hyperkalemia; F32.9 Major depressive disorder, single episode, unspecified; Q03.9 Congenital hydrocephalus, unspecified; I69.351 Hemiplegia and hemiparesis following cerebral infarction affecting right dominant side; Z91.81 History of falling; R51 Headache; Q04.6 Congenital cerebral cysts; M51.36 Other intervertebral disc degeneration, lumbar region; Z23 Encounter for immunization; B96.20 Unspecified Escherichia coli [E. coli] as the cause of diseases classified elsewhere
CPT/HCPCS: 36415; 70450; 80048; 80053; 80061; 81003; 82962; 83036; 83690; 83735; 84100; 85025; 85610; 85651; 85730; 87040; 87081; 87086; 87181; 90630; 90732; 93005; 94664; 99285; J1815

== ENCOUNTER 2017-04-15 15:39 | Inpatient (IN) | payer MEDICAID ==
[2017-04-15] VITALS (7 sets, daily range): BP systolic 93–112; BP diastolic 54–75
[~2017-04-15] VITALS: Ht 177.8 cm; Wt 108.9 kg
[~2017-04-15 15:39] MED LIST: ABILIFY15 MG ORAL; ACTOS15 MG ORAL; AMLODIPINE-BEN1 EACH ORAL; BENAZEPRIL HCL10 MG ORAL; CEPHALEXIN500 MG ORAL; CILOSTAZOL100 MG PO; DEPAKOTE ER500 MG ORAL; GABAPENTIN300 MG ORAL; HYDROCHLOROTH12.5 MG ORAL; METFORMIN HCL500 M1 ORAL; RISPERDAL3 MG PO; SERTRALINE HCL100 MG PO
--- NOTE | 2017-04-15 15:54 | Emergency Room Report ---
History of Present Illness General Chief Complaint: Multiple Trauma/Fall Source: Patient Present Illness HPI Patient is a 56-year-old female who presented after increased right-sided knee pain after a fall. Patient denied any fever.She reports having pain to her right knee only. The patient was noted a prior history of schizophrenia. The patient reported having increased generalized weakness. History is limited by patient's poor historian Allergies: Coded Allergies: No Known Allergies (Unverified , 03/20/17) Patient History Past Medical History: see triage record Reviewed Nursing Documentation: PMH: Agreed, PSxH: Agreed Nursing Documentation-PMH Hx Cardiac Problems: Yes Hx Hypertension: Yes Hx Diabetes: Yes Hx Cancer: No Hx Gastrointestinal Problems: No History Of Psychiatric Problem: Yes - schizo Hx Cerebrovascular Accident: Yes Review of Systems All Other Systems: negative except mentioned in HPI Physical Exam Vital Signs Date Time Temp Pulse Resp B/P (MAP) Pulse Ox O2 Delivery O2 Flow Rate FiO2 04/15/17 15:38 98.2 102 18 107/80 98 Room Air Sp02 EP Interpretation: reviewed, normal General Appearance: normal inspection, well appearing, no apparent distress, alert, GCS 15 Head: atraumatic ENT: normal ENT inspection, hearing grossly normal, normal voice Neck: normal inspection, full range of motion, supple, no bony tend Respiratory: normal inspection, lungs clear, normal breath sounds, no respiratory distress, no retraction, no wheezing Cardiovascular #1: regular rate, rhythm, no edema Gastrointestinal: normal inspection, normal bowel sounds, non tender, soft, no guarding, no hernia Genitourinary: no CVA tenderness Musculoskeletal: normal inspection, back normal, normal range of motion Neurologic: normal inspection, alert, responsive, speech normal, motor weakness - right upper extremity Psychiatric: normal inspection, judgement/insight normal, mood/affect normal Skin: normal inspection, normal color, no rash Medical Decision Making Diagnostic Impression: Primary Impression: Acute kidney injury Additional Impressions: Fall Hyperglycemia ER Course Patient presented for right knee pain . Differential diagnosis included was not limited to fracture, CVA, close head injury, syncopal episode, basilar ischemia. Patient's benign exam and does not appear to require any further laboratory testing at this time. The patient was noted to have recent blood testing done at [facility] which showed normal BUN creatinine. Laboratory testing today the showed evidence of renal insufficiency which appears to be new. The patient started on IV fluids the patient was given IV insulin for hyperglycemia. The patient was noted to be mildly hyperkalemic. The patient started on IV fluid with some improvement in her hyperkalemia. EKG interpreted by me showed sinus tachycardia with a rate of [address] or T wave changes there was no QRS widening or T wave peaking. Dr. Lazaro was contacted for inpatient management due to complexity of medical condition. Labs Test 04/15/17 17:32 04/15/17 18:13 Sodium Level 136 MMOL/L (136-145) Potassium Level 5.7 MMOL/L (3.5-5.1) Chloride Level 102 MMOL/L (98-107) Carbon Dioxide Level 24 MMOL/L (21-32) Anion Gap 10 mmol/L (5-15) Blood Urea Nitrogen 58 mg/dL (7-18) Creatinine 2.5 MG/DL (0.55-1.30) Estimat Glomerular Filtration Rate 24.1 mL/min (>60) Glucose Level 306 MG/DL (74-106) Calcium Level 9.1 MG/DL (8.5-10.1) Total Bilirubin 0.2 MG/DL (0.2-1.0) Aspartate Amino Transf (AST/SGOT) 26 U/L (15-37) Alanine Aminotransferase (ALT/SGPT) 18 U/L (12-78) Alkaline Phosphatase 63 U/L (46-116) Troponin I 0.000 ng/mL (0.000-0.056) Total Protein 7.0 G/DL (6.4-8.2) Albumin 3.2 G/DL (3.4-5.0) Globulin 3.8 g/dL Albumin/Globulin Ratio 0.8 (1.0-2.7) EKG Diagnostic Results Rate: tachycardiac Rhythm: NSR ST Segments: no acute changes Last Vital Signs Date Time Temp Pulse Resp B/P (MAP) Pulse Ox O2 Delivery O2 Flow Rate FiO2 04/15/17 15:38 98.2 102 18 107/80 98 Room Air Status: unchanged Disposition: ADMITTED INPATIENT Condition: Serious Addison Markham Apr 15, 2017 15:54
--- NOTE | 2017-04-15 16:28 | Diagnostic Imaging Report ---
Indication: Reason For Exam: PAIN Technique: 4 views of the right knee Comparison: None Findings: There are degenerative changes of the lateral and patellofemoral compartments. There are patellofemoral osteophytes. No suprapatellar effusion. No gross acute fractures. No dislocations. There are vascular calcifications Impression: Degenerative changes, as described No acute bony trauma
[2017-04-15 18:00] LABS: ANION GAP 10 mmol/L (5-15); CALCIUM 9.1 MG/DL (8.5-10.1); CARBON DIOXIDE 24 MMOL/L (21-32); CHLORIDE 102 MMOL/L (98-107); CREATININE 2.5 MG/DL (0.55-1.30); GLOMERULAR FILTRATION RATE 24.1 mL/min (>60); POTASSIUM 5.7 MMOL/L (3.5-5.1); SODIUM 136 MMOL/L (136-145)
[2017-04-15 18:06] LABS: ALANINE AMINOTRANSFERASE 18 U/L (12-78); ALBUMIN/GLOBULIN RATIO 0.8 (1.0-2.7); ASPARTATE AMINO TRANSFERASE 26 U/L (15-37)
[2017-04-15 18:29] LABS: BASOPHILS % (AUTO) 1.2 % (0.0-2.0); EOSINOPHILS % (AUTO) 0.2 % (0.0-3.0); LYMPHOCYTES % (AUTO) 21.1 % (20.0-45.0); MEAN CORPUSCULAR HEMOGLOBIN 28.2 PG (27.0-31.0); MEAN CORPUSCULAR HGB CONC 31.3 G/DL (32.0-36.0); MEAN CORPUSCULAR VOLUME 90 FL (80-99); MEAN PLATELET VOLUME 6.7 FL (6.5-10.1); MONOCYTES % (AUTO) 7.1 % (1.0-10.0); NEUTROPHILS % (AUTO) 70.5 % (45.0-75.0); PLATELET COUNT 241 K/UL (150-450); RED BLOOD COUNT 4.58 M/UL (4.20-5.40); WHITE BLOOD COUNT 9.7 K/UL (4.8-10.8)
[2017-04-15 18:47] LABS: ANION GAP 10 mmol/L (5-15); CALCIUM 9.3 MG/DL (8.5-10.1); CARBON DIOXIDE 26 MMOL/L (21-32); CHLORIDE 101 MMOL/L (98-107); CREATININE 2.5 MG/DL (0.55-1.30); GLOMERULAR FILTRATION RATE 24.1 mL/min (>60); POTASSIUM 5.3 MMOL/L (3.5-5.1); SODIUM 137 MMOL/L (136-145)
[2017-04-15 18:54] LABS: ALANINE AMINOTRANSFERASE 20 U/L (12-78); ALBUMIN/GLOBULIN RATIO 0.8 (1.0-2.7); ASPARTATE AMINO TRANSFERASE 27 U/L (15-37); TOTAL PROTEIN 7.3 G/DL (6.4-8.2)
[2017-04-15] MEDS ORDERED: Morphine Sulfate 2mg/ml Inj IVP PRN (22:15)
[2017-04-15] MEDS ORDERED: LORazepam Inj 2mg/ml 1ml IV PRN (22:15)
[2017-04-15] MEDS ORDERED: Zolpidem 5mg tab ORAL PRN (22:15)
[2017-04-15] MEDS ORDERED: Mylanta II UD 30ml ORAL PRN (22:15)
[2017-04-15] MEDS ORDERED: Miralax 17gm pkt ORAL PRN (22:15)
[2017-04-15 23:13] LABS: OSMOLALITY SERUM 319 mOsm/kg (297-317)
[2017-04-15 23:16] LABS: ALANINE AMINOTRANSFERASE 21 U/L (12-78); ALBUMIN/GLOBULIN RATIO 0.8 (1.0-2.7); ANION GAP 9 mmol/L (5-15); ASPARTATE AMINO TRANSFERASE 26 U/L (15-37); CALCIUM 9.2 MG/DL (8.5-10.1); CARBON DIOXIDE 26 MMOL/L (21-32); CHLORIDE 101 MMOL/L (98-107); CREATININE 2.5 MG/DL (0.55-1.30); FREE T3 1.7 pg/mL (2.3-4.2); GLOMERULAR FILTRATION RATE 24.1 mL/min (>60); MAGNESIUM 1.6 MG/DL (1.8-2.4); PHOSPHORUS 3.6 MG/DL (2.5-4.9); POTASSIUM 5.3 MMOL/L (3.5-5.1); SODIUM 136 MMOL/L (136-145); TOTAL PROTEIN 7.3 G/DL (6.4-8.2); URIC ACID 8.1 MG/DL (2.6-7.2)
[2017-04-16] VITALS: BP 109/57
[2017-04-16 04:00] VITALS: BP 122/70
[2017-04-16 05:49] LABS: APPEARANCE,URINE CLEAR; KETONES,URINE NEGATIVE (NEGATIVE); LEUKOCYTE ESTERASE ,URINE 2+ (NEGATIVE); NITRITE,URINE NEGATIVE (NEGATIVE); PH,URINE 5 (4.5-8.0); PROTEIN,URINE 1+ (NEGATIVE); UROBILINOGEN,URINE NORMAL MG/DL (0.0-1.0)
[2017-04-16] MEDS: NovoLOG Insulin Flexpen SUBQ SCH ×4 (06:13→20:47)
[2017-04-16 06:14] LABS: BACTERIA,URINE FEW /HPF; SQUAMOUS EPITHELIAL CELL,UR FEW /LPF (NONE/OCC)
[2017-04-16 08:00] VITALS: BP 103/56
[2017-04-16 08:14] LABS: BASOPHILS % (AUTO) 1.1 % (0.0-2.0); EOSINOPHILS % (AUTO) 1.2 % (0.0-3.0); LYMPHOCYTES % (AUTO) 32.6 % (20.0-45.0); MEAN CORPUSCULAR HEMOGLOBIN 29.4 PG (27.0-31.0); MEAN CORPUSCULAR HGB CONC 32.4 G/DL (32.0-36.0); MEAN CORPUSCULAR VOLUME 91 FL (80-99); MEAN PLATELET VOLUME 7.2 FL (6.5-10.1); MONOCYTES % (AUTO) 8.4 % (1.0-10.0); NEUTROPHILS % (AUTO) 56.8 % (45.0-75.0); PLATELET COUNT 199 K/UL (150-450); RED BLOOD COUNT 3.88 M/UL (4.20-5.40); RED CELL DISTRIBUTION WIDTH 10.8 % (11.6-14.8); WHITE BLOOD COUNT 6.1 K/UL (4.8-10.8)
[2017-04-16] MEDS: Sertraline 100mg tab ORAL SCH ×2 (08:17→17:24)
[2017-04-16] MEDS: Heparin 5000 units/ml inj SUBQ SCH ×2 (08:18→20:48)
[2017-04-16 09:29] LABS: ALANINE AMINOTRANSFERASE 28 U/L (12-78); ALBUMIN/GLOBULIN RATIO 0.8 (1.0-2.7); ANION GAP 7 mmol/L (5-15); ASPARTATE AMINO TRANSFERASE 60 U/L (15-37); CALCIUM 8.9 MG/DL (8.5-10.1); CARBON DIOXIDE 27 MMOL/L (21-32); CHLORIDE 105 MMOL/L (98-107); CHOLESTEROL 148 MG/DL (< 200); CHOLESTEROL/HDL RATIO 2.8 (3.3-4.4); CREATININE 1.2 MG/DL (0.55-1.30); GLOMERULAR FILTRATION RATE 56.2 mL/min (>60); POTASSIUM 3.9 MMOL/L (3.5-5.1); SODIUM 139 MMOL/L (136-145); THYROID STIMULATING HORMONE 0.848 uiU/mL (0.358-3.740); TOTAL PROTEIN 6.5 G/DL (6.4-8.2)
[2017-04-16 09:38] LABS: HEMOGLOBIN A1C 10.5 % (4.3-6.0)
--- NOTE | 2017-04-16 10:05 | Diagnostic Imaging Report ---
Indication: Shortness of breath Technique: One view of the chest Comparison: And Findings: Lungs and pleural spaces are clear. Heart size is normal. Impression: No acute process
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
[2017-04-16 12:00] VITALS: BP 115/60
[2017-04-16] MEDS: Nystatin Powder 100,000 units/gm 15gm TOPIC SCH ×3 (12:43→17:39)
--- NOTE | 2017-04-16 12:47 | History and Physical ---
History of Present Illness General Date patient seen: Apr 16, 2017 Reason for Hospitalization: Multiple Trauma/Fall Present Illness HPI 56-year-old female with hx of schizophrenia presented to ER after increased right-sided knee pain after a fall. Patient denied any fever.She reports having pain to her right knee only. The patient reported having increased generalized weakness. She is admitted for acute syncope to telemetry. Allergies: Coded Allergies: No Known Allergies (Unverified , 03/20/17) Medication History Scheduled Amlodipine Besylate/Benazepril* (Amlodipine-Benazepril 10-20 Mg*), 1 CAP ORAL DAILY, (Reported) Aripiprazole* (Abilify*), 30 MG ORAL DAILY, (Reported) Cephalexin* (Keflex*), 500 MG ORAL EVERY 6 HOURS Cilostazol* (Cilostazol*), 100 MG PO TWICE A DAY, (Reported) Divalproex Sodium* (Depakote Er*), 500 MG ORAL QHS, (Reported) Gabapentin* (Gabapentin*), 300 MG ORAL BID, (Reported) Hydrochlorothiazide* (Hydrochlorothiazide*), Unknown Dose ORAL DAILY, (Reported) Metformin Hcl* (Metformin Hcl*), 500 MG ORAL TWICE A DAY, (Reported) Pioglitazone Hcl* (Actos*), 15 MG ORAL DAILY, (Reported) Risperidone (Risperdal), 3 MG PO QHS, (Reported) Sertraline Hcl* (Zoloft*), 100 MG PO BID, (Reported) Patient History Healthcare decision maker Resuscitation status Full Code Advanced Directive on File No Past Medical/Surgical History Past Medical/Surgical History: (1) Schizophrenia Review of Systems All Other Systems: negative except mentioned in HPI Physical Exam General Appearance: WD/WN Lines, tubes and drains: peripheral, PICC HEENT: normocephalic, atraumatic Neck: non-tender, normal alignment Respiratory/Chest: chest wall non-tender, lungs clear Cardiovascular/Chest: normal peripheral pulses, normal rate Abdomen: non tender, no organomegaly Genitourinary/Rectal: normal genital exam Extremities: non-tender Last 24 Hour Vital Signs Date Time Temp Pulse Resp B/P (MAP) Pulse Ox O2 Delivery O2 Flow Rate FiO2 04/16/17 08:00 92 04/16/17 08:00 96.4 98 19 103/56 Room Air 04/16/17 04:00 96 12/13/17 04:00 97.7 93 20 122/70 95 Room Air 04/16/17 00:00 97.7 95 20 109/57 94 Room Air 04/16/17 00:00 93 04/15/17 22:17 97.7 98 20 99/56 94 Room Air 04/15/17 22:10 103 04/15/17 21:58 98.0 102 15 93/57 97 Room Air 04/15/17 21:58 98.0 102 15 93/57 97 Room Air 04/15/17 21:19 98.0 102 15 93/57 97 Room Air 04/15/17 19:21 98.2 104 18 100/54 99 Room Air 04/15/17 18:34 98.2 118 18 112/65 99 Room Air 04/15/17 17:24 98.2 118 19 96/59 100 Room Air 04/15/17 16:49 98.2 04/15/17 15:48 98.2 115 18 109/75 99 Room Air 04/15/17 15:38 98.2 102 18 107/80 98 Room Air Laboratory Tests Test 04/15/17 17:32 04/15/17 18:13 04/16/17 04:00 04/16/17 07:05 Sodium Level 136 MMOL/L (136-145) 136 MMOL/L (136-145) 139 MMOL/L (136-145) Potassium Level 5.7 MMOL/L (3.5-5.1) H 5.3 MMOL/L (3.5-5.1) H 3.9 MMOL/L (3.5-5.1) Chloride Level 102 MMOL/L (98-107) 101 MMOL/L (98-107) 105 MMOL/L (98-107) Carbon Dioxide Level 24 MMOL/L (21-32) 26 MMOL/L (21-32) 27 MMOL/L (21-32) Anion Gap 10 mmol/L (5-15) 9 mmol/L (5-15) 7 mmol/L (5-15) Blood Urea Nitrogen 58 mg/dL (7-18) H 59 mg/dL (7-18) H 45 mg/dL (7-18) H Creatinine 2.5 MG/DL (0.55-1.30) H 2.5 MG/DL (0.55-1.30) H 1.2 MG/DL (0.55-1.30) # Estimat Glomerular Filtration Rate 24.1 mL/min (>60) 24.1 mL/min (>60) 56.2 mL/min (>60) Glucose Level 306 MG/DL (74-106) H 286 MG/DL (74-106) H 209 MG/DL (74-106) H Calcium Level 9.1 MG/DL (8.5-10.1) 9.2 MG/DL (8.5-10.1) 8.9 MG/DL (8.5-10.1) Total Bilirubin 0.2 MG/DL (0.2-1.0) 0.2 MG/DL (0.2-1.0) 0.4 MG/DL (0.2-1.0) Aspartate Amino Transf (AST/SGOT) 26 U/L (15-37) 26 U/L (15-37) 60 U/L (15-37) H Alanine Aminotransferase (ALT/SGPT) 18 U/L (12-78) 21 U/L (12-78) 28 U/L (12-78) Alkaline Phosphatase 63 U/L (46-116) 66 U/L (46-116) 60 U/L (46-116) Troponin I 0.000 ng/mL (0.000-0.056) Total Protein 7.0 G/DL (6.4-8.2) 7.3 G/DL (6.4-8.2) 6.5 G/DL (6.4-8.2) Albumin 3.2 G/DL (3.4-5.0) L 3.3 G/DL (3.4-5.0) L 2.9 G/DL (3.4-5.0) L Globulin 3.8 g/dL 4.0 g/dL 3.6 g/dL Albumin/Globulin Ratio 0.8 (1.0-2.7) L 0.8 (1.0-2.7) L 0.8 (1.0-2.7) L White Blood Count 9.7 K/UL (4.8-10.8) 6.1 K/UL (4.8-10.8) Red Blood Count 4.58 M/UL (4.20-5.40) 3.88 M/UL (4.20-5.40) L Hemoglobin 12.9 G/DL (12.0-16.0) 11.4 G/DL (12.0-16.0) L Hematocrit 41.3 % (37.0-47.0) 35.3 % (37.0-47.0) L Mean Corpuscular Volume 90 FL (80-99) 91 FL (80-99) Mean Corpuscular Hemoglobin 28.2 PG (27.0-31.0) 29.4 PG (27.0-31.0) Mean Corpuscular Hemoglobin Concent 31.3 G/DL (32.0-36.0) L 32.4 G/DL (32.0-36.0) Red Cell Distribution Width 11.0 % (11.6-14.8) L 10.8 % (11.6-14.8) L Platelet Count 241 K/UL (150-450) 199 K/UL (150-450) Mean Platelet Volume 6.7 FL (6.5-10.1) 7.2 FL (6.5-10.1) Neutrophils (%) (Auto) 70.5 % (45.0-75.0) 56.8 % (45.0-75.0) Lymphocytes (%) (Auto) 21.1 % (20.0-45.0) 32.6 % (20.0-45.0) Monocytes (%) (Auto) 7.1 % (1.0-10.0) 8.4 % (1.0-10.0) Eosinophils (%) (Auto) 0.2 % (0.0-3.0) 1.2 % (0.0-3.0) Basophils (%) (Auto) 1.2 % (0.0-2.0) 1.1 % (0.0-2.0) Osmolality 319 mOsm/kg (297-317) H Uric Acid 8.1 MG/DL (2.6-7.2) H Phosphorus Level 3.6 MG/DL (2.5-4.9) Magnesium Level 1.6 MG/DL (1.8-2.4) L Total Creatine Kinase 680 U/L (26-308) H Free Thyroxine 0.77 NG/DL (0.76-1.46) Free Triiodothyronine 1.7 pg/mL (2.3-4.2) L Cortisol Pending Urine Color Pale yellow Urine Appearance Clear Urine pH 5 (4.5-8.0) Urine Specific [place] 1.010 (1.005-1.035) Urine Protein 1+ (NEGATIVE) H Urine Glucose (UA) 2+ (NEGATIVE) H Urine Ketones Negative (NEGATIVE) Urine Occult Blood 2+ (NEGATIVE) H Urine Nitrite Negative (NEGATIVE) Urine Bilirubin Negative (NEGATIVE) Urine Urobilinogen Normal MG/DL (0.0-1.0) Urine Leukocyte Esterase 2+ (NEGATIVE) H Urine RBC 2-4 /HPF (0 - 2) H Urine WBC 2-4 /HPF (0 - 2) Urine Squamous Epithelial Cells Few /LPF (NONE/OCC) Urine Bacteria Few /HPF (NONE) Urine Eosinophils None seen Urine Osmolality 433 mOsm/kg (429-449) Urine Random Sodium 75 MEQ/L (20-110) Urine Random Chloride 76 mmol/L (55-125) Urine Potassium Timed 12 mmol/L (12-62) Hemoglobin A1c 10.5 % (4.3-6.0) H Triglycerides Level 68 MG/DL (30-150) Cholesterol Level 148 MG/DL (< 200) LDL Cholesterol 80 mg/dL (<100) HDL Cholesterol 52 MG/DL (40-60) Cholesterol/HDL Ratio 2.8 (3.3-4.4) L Thyroid Stimulating Hormone (TSH) 0.848 uiU/mL (0.358-3.740) Height (Feet): 5 Height (Inches): 10.00 Weight (Pounds): 240 Medications Current Medications Medications (Trade) Dose Ordered Sig/Uyen Route PRN Reason Start Time Stop Time Status Last Admin Dose Admin Acetaminophen (Tylenol) 650 mg Q4H PRN ORAL fever 04/15/17 22:15 05/15/17 22:14 Al Hydroxide/Mg Hydroxide (Mylanta II) 30 ml Q6H PRN ORAL dyspepsia 04/15/17 22:15 05/15/17 22:14 Aripiprazole (Abilify) 30 mg DAILY ORAL 04/16/17 09:00 05/16/17 08:59 04/16/17 08:16 Clonidine HCl (Catapres) 0.1 mg Q4H PRN ORAL For High Blood Pressure 04/15/17 22:15 05/15/17 22:14 Dextrose (Dextrose 50%) STAT PRN IV Hypoglycemia 04/15/17 22:15 05/15/17 22:14 Divalproex Sodium (Depakote ER) 500 mg QHS ORAL 04/16/17 21:00 05/16/17 20:59 Heparin Sodium (Porcine) (Heparin 5000 units/ml) 5,000 units EVERY 12 HOURS SUBQ 04/16/17 09:00 05/16/17 08:59 04/16/17 08:18 Insulin Aspart (NovoLOG) BEFORE MEALS AND HS SUBQ 04/16/17 06:30 05/16/17 06:29 04/16/17 06:13 Lorazepam (Ativan 2mg/ml 1ml) 0.5 mg Q4H PRN IV For Anxiety 04/15/17 22:15 04/22/17 22:14 Morphine Sulfate (Morphine Sulfate) 1 mg EVERY 4 HOURS PRN IVP For Pain 04/15/17 22:15 04/22/17 22:14 Nystatin (Nystop Powder) 1 applic THREE TIMES A DAY TOPIC 04/16/17 13:00 05/16/17 12:59 Ondansetron HCl (Zofran) 4 mg Q6H PRN IVP Nausea & Vomiting 04/15/17 22:15 05/15/17 22:14 Polyethylene Glycol (Miralax) 17 gm HSPRN PRN ORAL Constipation 04/15/17 22:15 05/15/17 22:14 Sertraline HCl (Zoloft) 100 mg BID ORAL 04/16/17 09:00 05/16/17 08:59 04/16/17 08:17 Zolpidem Tartrate (Ambien) 5 mg HSPRN PRN ORAL Insomnia 04/15/17 22:15 04/22/17 22:14 Assessment/Plan Problem List: (1) Acute encephalopathy ICD Codes: G93.40 - Encephalopathy, unspecified SNOMED: 6624437 (2) Acute kidney injury ICD Codes: N17.9 - Acute kidney failure, unspecified SNOMED: 80311547 (3) Schizophrenia ICD Codes: F20.9 - Schizophrenia, unspecified SNOMED: 32815950 (4) Diabetes mellitus ICD Codes: E11.9 - Type 2 diabetes mellitus without complications SNOMED: 01574152 (5) Hyperglycemia ICD Codes: R73.9 - Hyperglycemia, unspecified SNOMED: 77838508 Assessment/Plan telemetry monitoring Neuro evaluation social service [employer] Apr 16, 2017 12:47
--- NOTE | 2017-04-16 15:14 | Diagnostic Imaging Report ---
Indication: Abnormal renal function tests Technique: Grayscale and duplex images of the kidneys, retroperitoneum, and bladder were obtained. Comparison:none Findings: Right kidney measures 12.1 cm in length. Left kidney measures 11 cm in length. Both kidneys demonstrate normal echogenicity. No hydronephrosis. Left kidney demonstrates a lower pole cyst. Normal inferior vena cava. Bladder is normal. Impression: Essentially unremarkable exam Incidental finding left lower pole renal cyst.
[2017-04-16 16:00] VITALS: BP 120/72
--- NOTE | 2017-04-16 19:36 | Consultation ---
History of Present Illness General Chief Complaint: Multiple Trauma/Fall Present Illness HPI 56-year-old female who presented after increased right-sided knee pain after a fall. the pt has hx of schizoaffective d/o. the pt is stable on her current med regimen. the pt is somewhat paranoid Allergies: Coded Allergies: No Known Allergies (Unverified , 03/20/17) Medication History Scheduled Amlodipine Besylate/Benazepril* (Amlodipine-Benazepril 10-20 Mg*), 1 CAP ORAL DAILY, (Reported) Aripiprazole* (Abilify*), 30 MG ORAL DAILY, (Reported) Cephalexin* (Keflex*), 500 MG ORAL EVERY 6 HOURS Cilostazol* (Cilostazol*), 100 MG PO TWICE A DAY, (Reported) Divalproex Sodium* (Depakote Er*), 500 MG ORAL QHS, (Reported) Gabapentin* (Gabapentin*), 300 MG ORAL BID, (Reported) Hydrochlorothiazide* (Hydrochlorothiazide*), Unknown Dose ORAL DAILY, (Reported) Metformin Hcl* (Metformin Hcl*), 500 MG ORAL TWICE A DAY, (Reported) Pioglitazone Hcl* (Actos*), 15 MG ORAL DAILY, (Reported) Risperidone (Risperdal), 3 MG PO QHS, (Reported) Sertraline Hcl* (Zoloft*), 100 MG PO BID, (Reported) Patient History History Provided By: Patient, Medical Record, PMD Healthcare decision maker Resuscitation status Full Code Advanced Directive on File No Past Medical/Surgical History Past Medical/Surgical History: (1) Congenital brain damage (2) Cerebrovascular accident (CVA) (3) Hyperglycemia (4) Fall (5) Schizophrenia (6) Acute kidney injury (7) Acute encephalopathy (8) Diabetes mellitus Review of Systems Psychiatric: Reports: prior hx, anxiety, depressed feelings, emotional problems , hallucinations Physical Exam General Appearance: no apparent distress, alert, overweight Neurologic: alert, oriented x 3, responsive, depressed affect Last 24 Hour Vital Signs Date Time Temp Pulse Resp B/P (MAP) Pulse Ox O2 Delivery O2 Flow Rate FiO2 04/16/17 16:00 97.5 85 19 120/72 Room Air 04/16/17 12:00 86 04/16/17 12:00 96.8 82 18 115/60 Room Air 04/16/17 08:00 92 04/16/17 08:00 96.4 98 19 103/56 Room Air 04/16/17 04:00 96 04/16/17 04:00 97.7 93 20 122/70 95 Room Air 04/16/17 00:00 97.7 95 20 109/57 94 Room Air 04/16/17 00:00 93 04/15/17 22:17 97.7 98 20 99/56 94 Room Air 04/15/17 22:10 103 04/15/17 21:58 98.0 102 15 93/57 97 Room Air 04/15/17 21:58 98.0 102 15 93/57 97 Room Air 04/15/17 21:19 98.0 102 15 93/57 97 Room Air Intake and Output 04/16/17 04/17/17 19:00 07:00 # Voids 4 Laboratory Tests Test 04/16/17 04:00 04/16/17 07:05 Urine Color Pale yellow Urine Appearance Clear Urine pH 5 (4.5-8.0) Urine Specific [place] 1.010 (1.005-1.035) Urine Protein 1+ (NEGATIVE) H Urine Glucose (UA) 2+ (NEGATIVE) H Urine Ketones Negative (NEGATIVE) Urine Occult Blood 2+ (NEGATIVE) H Urine Nitrite Negative (NEGATIVE) Urine Bilirubin Negative (NEGATIVE) Urine Urobilinogen Normal MG/DL (0.0-1.0) Urine Leukocyte Esterase 2+ (NEGATIVE) H Urine RBC 2-4 /HPF (0 - 2) H Urine WBC 2-4 /HPF (0 - 2) Urine Squamous Epithelial Cells Few /LPF (NONE/OCC) Urine Bacteria Few /HPF (NONE) Urine Eosinophils None seen Urine Osmolality 433 mOsm/kg (429-449) Urine Random Sodium 75 MEQ/L (20-110) Urine Random Chloride 76 mmol/L (55-125) Urine Potassium Timed 12 mmol/L (12-62) White Blood Count 6.1 K/UL (4.8-10.8) Red Blood Count 3.88 M/UL (4.20-5.40) L Hemoglobin 11.4 G/DL (12.0-16.0) L Hematocrit 35.3 % (37.0-47.0) L Mean Corpuscular Volume 91 FL (80-99) Mean Corpuscular Hemoglobin 29.4 PG (27.0-31.0) Mean Corpuscular Hemoglobin Concent 32.4 G/DL (32.0-36.0) Red Cell Distribution Width 10.8 % (11.6-14.8) L Platelet Count 199 K/UL (150-450) Mean Platelet Volume 7.2 FL (6.5-10.1) Neutrophils (%) (Auto) 56.8 % (45.0-75.0) Lymphocytes (%) (Auto) 32.6 % (20.0-45.0) Monocytes (%) (Auto) 8.4 % (1.0-10.0) Eosinophils (%) (Auto) 1.2 % (0.0-3.0) Basophils (%) (Auto) 1.1 % (0.0-2.0) Sodium Level 139 MMOL/L (136-145) Potassium Level 3.9 MMOL/L (3.5-5.1) Chloride Level 105 MMOL/L (98-107) Carbon Dioxide Level 27 MMOL/L (21-32) Anion Gap 7 mmol/L (5-15) Blood Urea Nitrogen 45 mg/dL (7-18) H Creatinine 1.2 MG/DL (0.55-1.30) # Estimat Glomerular Filtration Rate 56.2 mL/min (>60) Glucose Level 209 MG/DL (74-106) H Hemoglobin A1c 10.5 % (4.3-6.0) H Calcium Level 8.9 MG/DL (8.5-10.1) Total Bilirubin 0.4 MG/DL (0.2-1.0) Aspartate Amino Transf (AST/SGOT) 60 U/L (15-37) H Alanine Aminotransferase (ALT/SGPT) 28 U/L (12-78) Alkaline Phosphatase 60 U/L (46-116) Total Protein 6.5 G/DL (6.4-8.2) Albumin 2.9 G/DL (3.4-5.0) L Globulin 3.6 g/dL Albumin/Globulin Ratio 0.8 (1.0-2.7) L Triglycerides Level 68 MG/DL (30-150) Cholesterol Level 148 MG/DL (< 200) LDL Cholesterol 80 mg/dL (<100) HDL Cholesterol 52 MG/DL (40-60) Cholesterol/HDL Ratio 2.8 (3.3-4.4) L Thyroid Stimulating Hormone (TSH) 0.848 uiU/mL (0.358-3.740) Height (Feet): 5 Height (Inches): 10.00 Weight (Pounds): 240 Medications Current Medications Medications (Trade) Dose Ordered Sig/Uyen Route PRN Reason Start Time Stop Time Status Last Admin Dose Admin Acetaminophen (Tylenol) 650 mg Q4H PRN ORAL fever 04/15/17 22:15 05/15/17 22:14 Al Hydroxide/Mg Hydroxide (Mylanta II) 30 ml Q6H PRN ORAL dyspepsia 04/15/17 22:15 05/15/17 22:14 Aripiprazole (Abilify) 30 mg DAILY ORAL 04/16/17 09:00 05/16/17 08:59 04/16/17 08:16 Clonidine HCl (Catapres) 0.1 mg Q4H PRN ORAL For High Blood Pressure 04/15/17 22:15 05/15/17 22:14 Dextrose (Dextrose 50%) STAT PRN IV Hypoglycemia 04/15/17 22:15 05/15/17 22:14 Divalproex Sodium (Depakote ER) 500 mg QHS ORAL 04/16/17 21:00 05/16/17 20:59 Heparin Sodium (Porcine) (Heparin 5000 units/ml) 5,000 units EVERY 12 HOURS SUBQ 04/16/17 09:00 05/16/17 08:59 04/16/17 08:18 Insulin Aspart (NovoLOG) BEFORE MEALS AND HS SUBQ 04/16/17 06:30 05/16/17 06:29 04/16/17 17:27 Lorazepam (Ativan 2mg/ml 1ml) 0.5 mg Q4H PRN IV For Anxiety 04/15/17 22:15 04/22/17 22:14 Morphine Sulfate (Morphine Sulfate) 1 mg EVERY 4 HOURS PRN IVP For Pain 04/15/17 22:15 04/22/17 22:14 Nystatin (Nystop Powder) 1 applic THREE TIMES A DAY TOPIC 04/16/17 13:00 05/16/17 12:59 04/16/17 17:39 Ondansetron HCl (Zofran) 4 mg Q6H PRN IVP Nausea & Vomiting 04/15/17 22:15 1/11/18 22:14 Polyethylene Glycol (Miralax) 17 gm HSPRN PRN ORAL Constipation 04/15/17 22:15 05/15/17 22:14 Sertraline HCl (Zoloft) 100 mg BID ORAL 04/16/17 09:00 05/16/17 08:59 04/16/17 17:24 Zolpidem Tartrate (Ambien) 5 mg HSPRN PRN ORAL Insomnia 04/15/17 22:15 04/22/17 22:14 Assessment/Plan Status: stable Assessment/Plan Abilify 30mg qam depakote 500mg bid Farrah Nazario M.D. Apr 16, 2017 19:36
[2017-04-16 20:10] VITALS: BP 132/81
[2017-04-16] MEDS ORDERED: Depakote ER 500mg tab ORAL SCH (21:00)
[2017-04-17 00:26] VITALS: BP 112/70
[2017-04-17 04:25] VITALS: BP 127/68
[2017-04-17] MEDS: NovoLOG Insulin Flexpen SUBQ SCH ×2 (06:27→12:44)
[2017-04-17 08:00] VITALS: BP 123/71
[2017-04-17] MEDS: Sertraline 100mg tab ORAL SCH (08:24)
[2017-04-17] MEDS: Nystatin Powder 100,000 units/gm 15gm TOPIC SCH ×2 (08:25→12:42)
[2017-04-17] MEDS: Heparin 5000 units/ml inj SUBQ SCH (08:30)
--- NOTE | 2017-04-17 11:00 | Cardiology Report ---
APPROVED REPORT EKG Measurement Heart [id number] VT [id number] Sinus tachycardia Otherwise normal ECG
[2017-04-17 12:03] VITALS: BP 136/79
--- NOTE | 2017-04-17 12:04 | Pulmonology Progress Note ---
Assessment/Plan Problems: (1) Acute encephalopathy (2) Acute kidney injury (3) Schizophrenia (4) Diabetes mellitus (5) Hyperglycemia Assessment/Plan improving renal function better wants to go home social servie consult appreciated Subjective ROS Limited/Unobtainable: No Interval Events: feeling better Allergies: Coded Allergies: No Known Allergies (Unverified , 03/20/17) Objective Last 24 Hour Vital Signs Date Time Temp Pulse Resp B/P (MAP) Pulse Ox O2 Delivery O2 Flow Rate FiO2 04/17/17 08:00 97.2 95 22 123/71 99 Room Air 04/17/17 04:25 97.7 91 20 127/68 96 Room Air 04/17/17 04:00 85 04/17/17 00:26 97.5 87 20 112/70 95 Room Air 04/17/17 00:00 81 04/16/17 20:10 97.7 92 20 132/81 96 Room Air 04/16/17 20:00 87 04/16/17 16:00 97.5 85 19 120/72 Room Air 04/16/17 16:00 84 Intake and Output 04/17/17 04/18/17 19:00 07:00 Intake Total 120 ml Balance 120 ml Intake Oral 120 ml General Appearance: WD/WN HEENT: normocephalic, atraumatic Respiratory/Chest: chest wall non-tender, lungs clear Breasts: no masses Cardiovascular: normal peripheral pulses Abdomen: normal bowel sounds, soft, non tender Genitourinary: normal external genitalia Skin: no rash Current Medications Medications (Trade) Dose Ordered Sig/Uyen Route PRN Reason Start Time Stop Time Status Last Admin Dose Admin Acetaminophen (Tylenol) 650 mg Q4H PRN ORAL fever 04/15/17 22:15 05/15/17 22:14 Al Hydroxide/Mg Hydroxide (Mylanta II) 30 ml Q6H PRN ORAL dyspepsia 04/15/17 22:15 05/15/17 22:14 Aripiprazole (Abilify) 30 mg DAILY ORAL 04/16/17 09:00 05/16/17 08:59 04/17/17 08:25 Clonidine HCl (Catapres) 0.1 mg Q4H PRN ORAL For High Blood Pressure 04/15/17 22:15 05/15/17 22:14 Dextrose (Dextrose 50%) STAT PRN IV Hypoglycemia 04/15/17 22:15 05/15/17 22:14 Divalproex Sodium (Depakote ER) 500 mg QHS ORAL 04/16/17 21:00 05/16/17 20:59 04/16/17 20:42 Heparin Sodium (Porcine) (Heparin 5000 units/ml) 5,000 units EVERY 12 HOURS SUBQ 04/16/17 09:00 05/16/17 08:59 04/17/17 08:30 Insulin Aspart (NovoLOG) BEFORE MEALS AND HS SUBQ 04/16/17 06:30 05/16/17 06:29 04/17/17 06:27 Lorazepam (Ativan 2mg/ml 1ml) 0.5 mg Q4H PRN IV For Anxiety 04/15/17 22:15 04/22/17 22:14 Morphine Sulfate (Morphine Sulfate) 1 mg EVERY 4 HOURS PRN IVP For Pain 04/15/17 22:15 04/22/17 22:14 Nystatin (Nystop Powder) 1 applic THREE TIMES A DAY TOPIC 04/16/17 13:00 05/16/17 12:59 04/17/17 08:25 Ondansetron HCl (Zofran) 4 mg Q6H PRN IVP Nausea & Vomiting 04/15/17 22:15 05/15/17 22:14 Polyethylene Glycol (Miralax) 17 gm HSPRN PRN ORAL Constipation 04/15/17 22:15 05/15/17 22:14 Sertraline HCl (Zoloft) 100 mg BID ORAL 04/16/17 09:00 05/16/17 08:59 04/17/17 08:24 Zolpidem Tartrate (Ambien) 5 mg HSPRN PRN ORAL Insomnia 04/15/17 22:15 04/22/17 22:14 [employer]IN [employer] Apr 17, 2017 12:04
[2017-04-17] MEDS ORDERED: Tubing IV Secondary IV ONE (17:16)
--- NOTE | 2017-04-18 06:45 | Progress Note ---
DATE: 04/17/2017 SUBJECTIVE: The patient is calm, doing well. No behavior issues. No symptoms that are consistent with psychotic symptoms. No martine. MENTAL STATUS EXAMINATION: The patient is alert and oriented x4. Mood is neutral. Affect is flat. Thought process is concrete. Thought content, no suicidal or homicidal ideations. ASSESSMENT: Stable. PLAN: The patient is going to be discharged today. Provide the patient with supportive therapy and reality orientation. Farrah Nazario M.D. DR: Xiang JOB#: [id number] CC:
--- NOTE | 2017-04-18 11:36 | Discharge Summary ---
Discharge Summary Hospital Course Date of Admission Apr 15, 2017 at 19:26 Date of Discharge Apr 17, 2017 at 18:40 Admitting Diagnosis GEN WEAKNESS,ACUTE KIDNEY INJURY HPI Richelle Zazueta is a 56 year old female who was admitted on Apr 15, 2017 at 19:26 for General Weakness, Acute Kidney Injury Hospital Course [id number] Discharge Discharge Disposition Patient was discharged to [facility] (01) Discharge Diagnoses: Marcia Keene NP Apr 18, 2017 11:36
--- NOTE | 2017-04-19 00:46 | Discharge Summary 2 SIG ---
DATE OF ADMISSION: 04/15/2017 DATE OF DISCHARGE: 04/17/2017 HOPPER OPERATOR: Farrah Nazario M.D. BRIEF HOSPITAL COURSE: The patient is a 56-year-old female with history of schizophrenia, presented to ED complaining of right-sided knee pain after a fall. She denied fever. The patient reported having increased generalized weakness. She had an evaluation done at ED. X-ray of the right knee showed degenerative changes with no acute bony trauma. No dislocation. No acute fracture. Blood work showed creatinine 2.5 and BUN 58. She was noted to have a recent blood testing done at [place], which showed normal renal function. She was then started on IV fluids. Glucose was 306. She was given insulin. Potassium was 5.7. EKG showed sinus tachycardia at a rate of [address] to T-wave changes. She was admitted to telemetry for a syncopal episode and acute kidney injury. She underwent psychiatric evaluation. The patient has schizoaffective disorder and is a little paranoid. She was continued on Abilify 30 mg every morning and Depakote 500 mg b.i.d. Renal ultrasound done was unremarkable. She had a chest x-ray that showed no acute process. Urine electrolytes were normal and hyperkalemia improved with IV hydration. Creatinine eventually normalized. TSH was normal. She was then cleared for discharge and the patient was discharged home. FINAL DIAGNOSES: 1. Acute encephalopathy. 2. Acute kidney injury. 3. Schizophrenia. 4. Diabetes mellitus. DISPOSITION: The patient was discharged home. DISCHARGE MEDICATIONS: Refer to medication list. DISCHARGE INSTRUCTIONS: Follow up with PMD in a week. Seema Lazaro M.D. I have been assigned to dictate discharge summary on this account and I was not involved in the patient's management. Marcia Keene N.P. DR: MELIDA JOB#: [id number] CC:
== END 2017-04-17 18:40 | disposition home or self-care (01) | DRG 469 ==
LOC: EDBD 15:39 → EMR 17:36 → 2E 19:26 → EDBEDREQ 20:42
DX: N17.9 Acute kidney failure, unspecified (principal); G93.40 Encephalopathy, unspecified; E11.65 Type 2 diabetes mellitus with hyperglycemia; E87.5 Hyperkalemia; F25.9 Schizoaffective disorder, unspecified; M25.561 Pain in right knee; Z91.81 History of falling; Z86.73 Personal history of transient ischemic attack (TIA), and cerebral infarction without residual deficits
CPT/HCPCS: 36415; 71010; 76775; 80053; 80061; 81001; 82436; 82533; 82550; 82962; 83036; 83735; 83930; 83935; 84100; 84133; 84300; 84439; 84443; 84481; 84484; 84550; 85025; 87081; 89050; 93005; 99285; J1815

== ENCOUNTER → 2017-05-03 | Emergency (ER) | payer MEDICAID ==
[~2017-05-03] VITALS: Ht 180.3 cm; Wt 99.8 kg
[2017-05-03 15:15] VITALS: BP 170/86
[2017-05-03 19:40] VITALS: BP 157/82
[2017-05-03 20:05] LABS: BASOPHILS % (AUTO) 1.1 % (0.0-2.0); EOSINOPHILS % (AUTO) 0.9 % (0.0-3.0); HEMATOCRIT 36.8 % (37.0-47.0); HEMOGLOBIN 12.6 G/DL (12.0-16.0); LYMPHOCYTES % (AUTO) 28.8 % (20.0-45.0); MEAN CORPUSCULAR VOLUME 90 FL (80-99); MONOCYTES % (AUTO) 8.8 % (1.0-10.0); NEUTROPHILS % (AUTO) 60.4 % (45.0-75.0); PLATELET COUNT 251 K/UL (150-450); RED BLOOD COUNT 4.09 M/UL (4.20-5.40); RED CELL DISTRIBUTION WIDTH 10.9 % (11.6-14.8); WHITE BLOOD COUNT 7.6 K/UL (4.8-10.8)
[2017-05-03 20:13] LABS: ANION GAP 7 mmol/L (5-15); BLOOD UREA NITROGEN 20 mg/dL (7-18); CALCIUM 8.2 MG/DL (8.5-10.1); CARBON DIOXIDE 30 MMOL/L (21-32); CHLORIDE 108 MMOL/L (98-107); CREATININE 0.8 MG/DL (0.55-1.30); POTASSIUM 4.3 MMOL/L (3.5-5.1); SODIUM 145 MMOL/L (136-145)
[2017-05-03 20:17] LABS: ALANINE AMINOTRANSFERASE 14 U/L (12-78); ALBUMIN 3.1 G/DL (3.4-5.0); ALBUMIN/GLOBULIN RATIO 0.8 (1.0-2.7); ALKALINE PHOSPHATASE 66 U/L (46-116); ASPARTATE AMINO TRANSFERASE 11 U/L (15-37); BILIRUBIN,TOTAL 0.3 MG/DL (0.2-1.0)
[2017-05-03 20:24] VITALS: BP 157/82
--- NOTE | 2017-05-03 21:49 | Emergency Room Report ---
History of Present Illness General Chief Complaint: Abnormal Labs Source: Patient, Medical Record Present Illness HPI 56-year-old female presents ED for evaluation. Per EMS patient lives in an assisted facility with blood sugar high. Patient that she is a diabetic and is compliant with her medications. States she feels fine. Denies any fevers or chills. Denies nausea or vomiting. Denies any abdominal pain. No other aggravating relieving factors. Denies any other associated Allergies: Coded Allergies: No Known Allergies (Unverified , 03/20/17) Patient History Past Medical History: DM, HTN, CVA/TIA Past Surgical History: none Pertinent Family History: none Social History: Denies: smoking, alcohol use, drug use Now: No Immunizations: UTD Reviewed Nursing Documentation: PMH: Agreed, PSxH: Agreed Nursing Documentation-PMH Past Medical History: No History, Except For Hx Cardiac Problems: Yes Hx Hypertension: Yes Hx Diabetes: Yes Hx Cancer: No Hx Gastrointestinal Problems: No Hx Cerebrovascular Accident: Yes Review of Systems All Other Systems: negative except mentioned in HPI Physical Exam Vital Signs Date Time Temp Pulse Resp B/P (MAP) Pulse Ox O2 Delivery O2 Flow Rate FiO2 05/03/17 14:12 98.2 114 18 170/86 98 Room Air Sp02 EP Interpretation: reviewed, normal General Appearance: no apparent distress, alert, GCS 15, non-toxic Head: normocephalic, atraumatic Eyes: bilateral eye normal inspection, bilateral eye PERRL ENT: hearing grossly normal, normal pharynx, no angioedema, normal voice Neck: full range of motion, supple/symm/no masses Respiratory: chest non-tender, lungs clear, normal breath sounds, speaking full sentences Cardiovascular #1: regular rate, rhythm, no edema Cardiovascular #2: 2+ carotid (R), 2+ carotid (L), 2+ radial (R), 2+ radial (L) , 2+ dorsalis pedis (R), 2+ dorsalis pedis (L) Gastrointestinal: normal bowel sounds, non tender, soft, non-distended, no guarding, no rebound Rectal: deferred Genitourinary: normal inspection, no CVA tenderness Musculoskeletal: back normal, gait/station normal, normal range of motion, non- tender Neurologic: alert, oriented x3, responsive, motor strength/tone normal, sensory intact, speech normal Psychiatric: judgement/insight normal, memory normal, mood/affect normal, no suicidal/homicidal ideation Reflexes: 3+ bicep (R), 3+ bicep (L), 3+ tricep (R), 3+ tricep (L), 3+ knee (R) , 3+ knee (L) Skin: normal color, no rash, warm/dry, well hydrated Lymphatic: no adenopathy Medical Decision Making Diagnostic Impression: Primary Impression: Hyperglycemia ER Course Hospital Course 56-year-old female presenting to ED with elevated BS. Differential diagnoses include: ETOH/drug ingestion, sepsis, DKA Clinical course Patient placed on stretcher. On clinical research monitor. After initial history and physical I ordered labs, IV fluids Labs-glucose 132, no anion gap, bicarbonate normal, electrolytes ok. no leukocytosis. acetone negative After IV fluids and insulin Accu-Chek within normal limits. Patient is safe for discharge i. I feel this is a highly complex case requiring extensive working including EKG/Rhythm strip, Xray/CT/US, Blood/urine lab work, repeat exams while in ED, and administration of strong opiates/narcotics for pain control, admission to hospital or close patient follow up. diagnosis - hyperglycemia Stable and discharged to assisted living. Followup with PMD. Return to ED if symptoms recur or worsen Labs Test 05/03/17 19:33 White Blood Count 7.6 K/UL (4.8-10.8) Red Blood Count 4.09 M/UL (4.20-5.40) Hemoglobin 12.6 G/DL (12.0-16.0) Hematocrit 36.8 % (37.0-47.0) Mean Corpuscular Volume 90 FL (80-99) Mean Corpuscular Hemoglobin 30.8 PG (27.0-31.0) Mean Corpuscular Hemoglobin Concent 34.3 G/DL (32.0-36.0) Red Cell Distribution Width 10.9 % (11.6-14.8) Platelet Count 251 K/UL (150-450) Mean Platelet Volume 7.7 FL (6.5-10.1) Neutrophils (%) (Auto) 60.4 % (45.0-75.0) Lymphocytes (%) (Auto) 28.8 % (20.0-45.0) Monocytes (%) (Auto) 8.8 % (1.0-10.0) Eosinophils (%) (Auto) 0.9 % (0.0-3.0) Basophils (%) (Auto) 1.1 % (0.0-2.0) Sodium Level 145 MMOL/L (136-145) Potassium Level 4.3 MMOL/L (3.5-5.1) Chloride Level 108 MMOL/L (98-107) Carbon Dioxide Level 30 MMOL/L (21-32) Anion Gap 7 mmol/L (5-15) Blood Urea Nitrogen 20 mg/dL (7-18) Creatinine 0.8 MG/DL (0.55-1.30) Estimat Glomerular Filtration Rate > 60 mL/min (>60) Glucose Level 132 MG/DL (74-106) Calcium Level 8.2 MG/DL (8.5-10.1) Magnesium Level 1.7 MG/DL (1.8-2.4) Total Bilirubin 0.3 MG/DL (0.2-1.0) Aspartate Amino Transf (AST/SGOT) 11 U/L (15-37) Alanine Aminotransferase (ALT/SGPT) 14 U/L (12-78) Alkaline Phosphatase 66 U/L (46-116) Total Protein 7.1 G/DL (6.4-8.2) Albumin 3.1 G/DL (3.4-5.0) Globulin 4.0 g/dL Albumin/Globulin Ratio 0.8 (1.0-2.7) Acetone Level Negative (NEGATIVE) Last Vital Signs Date Time Temp Pulse Resp B/P (MAP) Pulse Ox O2 Delivery O2 Flow Rate FiO2 05/03/17 20:24 98.2 18 157/82 98 Room Air 05/03/17 14:12 114 Status: improved Disposition: ASSISTED LIVING Condition: Stable Patient Instructions: Hyperglycemia, [id number] JUJU PITT M.D. May 03, 2017 21:49
== END | disposition home or self-care (01) ==
LOC: EDUNIT# 14:00 → EDBD 14:17 → EMR 14:50
DX: R73.9 Hyperglycemia, unspecified (principal); I10 Essential (primary) hypertension; Z79.899 Other long term (current) drug therapy; Z86.73 Personal history of transient ischemic attack (TIA), and cerebral infarction without residual deficits
CPT/HCPCS: 36415; 80053; 82009; 82962; 83735; 85025; 99283; J1815